=== PATIENT | male | born 1940 | race Caucasian/White ===

== ENCOUNTER 2017-11-07 10:15 | Inpatient (IN) ==
--- NOTE | 2017-11-07 10:42 | Emergency Department Note ---
Disposition Clinical Impression: NSTEMI (non-ST elevated myocardial infarction) Disposition: Admitted As Inpatient [facility] Care Provider[facility] - Forms: ED Satisfaction Letter General Adult HPI - General Chief complaint: ED Chest Pain Stated complaint: elevated troponin Source: patient, family, EMS Limitations: no limitations - History of Present Illness Pain Scale: 1 - Related Data Allergies Allergy/AdvReac Type Severity Reaction Status Date / Time ascorbic acid Allergy Rash Verified 11/07/17 10:26 Past Medical History - Past Medical History Medical history: Reports: CHF, COPD, coronary artery disease, diabetes, GERD, hypertension Psychiatric history: Reports: no psych history - Social History Smoking Status: Current some day smoker Smokeless Tobacco Status: No Alcohol use: Reports: none Drug use: Reports: none Physical Exam - General Limitations: no limitations General appearance: alert, in no apparent distress Course - Reevaluation(s) Reevaluation #1: Attestation note I examined this patient and my medical decision-making was reviewed with the emergency medicine resident. I agree with the documented findings, disposition and treatment plan as described except to the extent set forth below. Patient seen with emergency medicine resident Dr. Amy Toro, Please see a copy of his note for details of the H&P, ED evaluation, management and disposition. I have independently evaluated the patient and confirmed appropriate portions of the history and physical exam. Briefly: 76-year-old male transferred by EMS from the [facility] for elevated troponin and chest pain. Patient had chest pain since last night no history of stents troponin came back 0.09, which is critically elevated. Patient is chest pain-free will be getting anticoagulation cardiology consultation and admission. Providing 30 minutes critical care service for this patient. Patient being admitted with the diagnosis of NSTEMI Time: 10:50 Vital Signs Temperature 97.7 F 11/07/17 10:17 Pulse Rate 80 11/07/17 10:17 Respiratory Rate 18 11/07/17 10:17 Blood Pressure 137/67 11/07/17 10:17 O2 Sat by Pulse Oximetry 99 11/07/17 10:17 Temperature 97.7 F 11/07/17 10:17 Pulse Rate 80 11/07/17 10:17 Respiratory Rate 18 11/07/17 10:17 Blood Pressure 137/67 11/07/17 10:17 O2 Sat by Pulse Oximetry 99 11/07/17 10:17 Oxygen Delivery Oxygen Delivery Nasal Cannula
--- NOTE | 2017-11-07 10:57 | Emergency Department Note ---
Disposition Clinical Impression: NSTEMI (non-ST elevated myocardial infarction) Disposition: Admitted As Inpatient Condition: Good Time of Disposition: 16:43 General Adult HPI - General Chief complaint: ED Chest Pain Stated complaint: elevated troponin Source: patient, family, EMS Limitations: no limitations Nursing Notes Reviewed: Yes Vital Signs Reviewed: Yes - History of Present Illness HPI Narrative: Chest pain that started last night. Pressure in the center of his chest. No radiation does have some mild shortness of breath. He did present to the [place] where he was found to have an elevated troponin of 0.9. No ST elevation noted on his EKG. His chest pain did relieved with aspirin. Pain Scale: 1 - Related Data Home Medications Medication Instructions Recorded Confirmed Ammonium Lactate [Amlactin] 1 appl TP BID 11/07/17 11/07/17 Aspirin Enteric Coated [Aspirin EC] 325 mg PO DAILY 11/07/17 11/07/17 Cetirizine HCl [All Day Allergy] 10 mg PO DAILY 11/07/17 11/07/17 Lanolin Alcohol/Mo/W.pet/[place] 1 appl TP DAILY 11/07/17 11/07/17 [Eucerin Creme] Metformin HCl [Glucophage] 1,000 mg PO BID 11/07/17 11/07/17 Metoprolol [Lopressor] 25 mg PO BID 11/07/17 11/07/17 Omeprazole [PriLOSEC] 20 mg PO DAILY 11/07/17 11/07/17 Pravastatin Sodium [Pravachol] 60 mg PO HS 11/07/17 11/07/17 Terazosin [Hytrin] 3 mg PO HS 11/07/17 11/07/17 Triamcinolone Acet 0.1% CRM 1 appl TP BID PRN 11/07/17 11/07/17 [Kenalog] Allergies Allergy/AdvReac Type Severity Reaction Status Date / Time ascorbic acid Allergy Rash Verified 11/07/17 11:47 All systems ED: reviewed and negative except as stated. Constitutional: Denies: fever, chills ENT ED: Denies: congestion Cardiovascular: Reports: chest pain. Denies: palpitations, syncope Respiratory: Reports: dyspnea (Mild shortness of breath associated with the chest pain not at this time.). Denies: cough Gastrointestinal: Denies: abdominal pain, nausea, vomiting, diarrhea Genitourinary: Denies: urgency, dysuria, frequency Musculoskeletal: Denies: back pain, neck pain Integumentary: Denies: rash Past Medical History - Past Medical History Attestation: Yes The following information was validated with the patient. Source: patient Medical history: Reports: CHF, COPD, coronary artery disease, diabetes, GERD, hypertension Psychiatric history: Reports: no psych history - Social History Smoking Status: Current some day smoker Smokeless Tobacco Status: No Alcohol use: Reports: none Drug use: Reports: none Physical Exam - General Limitations: no limitations General appearance: alert, in no apparent distress - Head Head exam: atraumatic, normocephalic, normal inspection - Eye Eye exam: Present: normal appearance, PERRL, EOMI - ENT ENT exam: normal exam, normal oropharynx, mucous membranes moist - Neck Neck exam: Present: normal inspection, full ROM, trachea midline - Chest Chest inspection: Present: normal inspection, symmetric chest wall rise - Respiratory Respiratory exam: Present: normal lung sounds bilaterally. Absent: respiratory distress, accessory muscle use - Cardiovascular Cardiovascular exam: Present: regular rate, normal rhythm, normal heart sounds - Abdominal Exam Abdominal exam: Present: soft, Non-Tender. Absent: tenderness, distention, guarding, rebound, rigidity - Extremities Exam Extremities exam: Present: normal inspection, full ROM. Absent: tenderness, pedal edema - Back Exam Back exam: Present: normal inspection, full ROM. Absent: tenderness - Neurological Exam Neurological exam: Present: alert, oriented X3 - Psychiatric Psychiatric exam: Present: normal affect, normal mood - Skin Skin exam: Present: warm, dry, intact, normal color Course Course Narrative: Male patient presenting to the emergency department after being transferred from the [place]. Patient started having chest pain around 9:30 last night. Describes it as a pressure in the center of his chest. No radiation. Did have associated shortness of breath. States it has eased at this time after some baby aspirin as well as [id number] pain medication. He states he did take 4 baby aspirin. He was found to have an elevated troponin at 0.9 at the [place]. We will anticoagulate the patient and admit him to the hospital after cardiology consult. I did speak with Dr. Henry about this. He is requesting a CTA of patient's chest due to patient's history of aortic root dilation. We did perform this and showed no signs of dissection. We have anticoagulated him and will admit to the hospital. Vital Signs Temperature 97.7 F 11/07/17 10:17 Pulse Rate 80 11/07/17 10:17 Respiratory Rate 18 11/07/17 10:17 Blood Pressure 137/67 11/07/17 10:17 O2 Sat by Pulse Oximetry 99 11/07/17 10:17 Temperature 98.1 F 11/07/17 13:34 Pulse Rate 71 11/07/17 13:34 Respiratory Rate 17 11/07/17 13:34 Blood Pressure 128/77 11/07/17 13:34 O2 Sat by Pulse Oximetry 99 11/07/17 13:45 Oxygen Delivery Oxygen Delivery Room Air Medical Decision Making - Medical Records Medical records reviewed: Yes I reviewed the patient's medical records. - Lab Data Lab results reviewed: Yes I reviewed the patient's lab results. Result diagrams: 11/07/17 11:18 11/07/17 13:10 Lab Results 11/07/17 11/07/17 11/07/17 Range/Units 11:18 11:18 13:10 WBC 7.3 (4.3-11.1) K/mcL RBC 4.34 (4.19-5.50) M/mcL Hgb 14.7 (12.9-16.9) g/dL Hct 43.2 (37.5-50.1) % MCV 99.5 (83.0-100.0) fL MCH 33.9 H (28.0-33.3) pg MCHC 34.0 (31.6-35.5) g/dL RDW 14.6 H (11.5-14.5) % Plt Count 111 L (140-400) K/mcL MPV 10.9 (9.4-12.4) fL PT 12.8 H (9.4-12.1) Seconds INR 1.2 APTT > 360.0 H* (26.0-36.0) Seconds Heparin Anti-Xa, Unfract 1.13 H* (0.30-0.70) IU/mL Sodium 139 (136-145) mEq/L Potassium 4.5 (3.5-5.1) mEq/L Chloride 107 (98-107) mEq/L Carbon Dioxide 28 (23-29) mEq/L BUN 17 (8-23) mg/dL Creatinine 0.81 (0.70-1.30) mg/dL Est GFR ( Amer) > 60 (> 60) Est GFR (Non-Af Amer) > 60 (> 60) BUN/Creatinine Ratio 21 (6-26) Glucose 149 H (70-105) mg/dL Calculated Osmolality 292 (280-300) Calcium 8.9 (8.6-10.3) mg/dL Total Bilirubin 0.7 (0.3-1.0) mg/dL AST 21 (13-39) Units/L ALT 11 (7-52) Units/L Alkaline Phosphatase 68 (34-104) Units/L Serum Total Protein 6.2 L (6.4-8.9) g/dL Albumin 4.0 (3.5-5.7) g/dL Globulin 2.2 L (2.4-3.5) g/dL Albumin/Globulin Ratio 1.8 (1.1-2.2) - Radiology Data Radiology results reviewed: Yes I reviewed the patient's radiology results. Chest CTA 11/07/17 11:06 IMPRESSION: 1. No evidence of aneurysm or dissection of the thoracic aorta. 2. 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 There is poststenotic dilatation and normal opacification of the peripheral vessel. 3. Peribronchial thickening and mild ground-glass opacities in the lingula and left lower lobe. Pattern may represent a viral infection such as bronchiolitis. No focal consolidation to indicate pneumonia. 4. Indeterminate cystic lesion in the body of the spleen. No prior imaging and no known history of cancer. Recommend a follow-up MRI in 6-12 months. D/ / Mark Davis MD / Mark Davis MD Interpreting Provider: Mark Davis MD - EKG Data EKG #1 EKG attestation: Yes I reviewed and interpreted this EKG. EKG results narrative: Normal sinus rhythm at a rate of 76. [place] interval is 170. QRS duration is 119. QT is 46. QTC is 436. No signs of acute ischemia. Patient does have a right bundle branch block this was on the previous EKG dated 08/25/2011.
[2017-11-07] MEDS ORDERED: *HR* Heparin 5,000 UNIT/ML VIAL IVP PRN ×2 (10:58)
[2017-11-07] MEDS ORDERED: *HR* Heparin 5,000 UNIT/ML VIAL IVP ONE (10:58)
[2017-11-07] MEDS ORDERED: Heparin 25,000 UNIT/500 ML D5W 25,000 UNIT/500 ML BAG IVC SCH (11:00)
[2017-11-07] MEDS ORDERED: Isovue-370 500 ML INFUS..BTL IV ONE (11:06)
[2017-11-07 11:46] LABS: INR 1.2; Prothrombin Time 12.8 Seconds (9.4-12.1)
[2017-11-07 12:27] LABS: Hematocrit 43.2 % (37.5-50.1); Hemoglobin 14.7 g/dL (12.9-16.9); Mean Corpuscular Hemoglobin 33.9 pg (28.0-33.3); Mean Corpuscular Volume 99.5 fL (83.0-100.0); Mean Platelet Volume 10.9 fL (9.4-12.4); Platelet Count 111 K/mcL (140-400); Red Blood Count 4.34 M/mcL (4.19-5.50); Red Cell Distribution Width 14.6 % (11.5-14.5)
[2017-11-07 12:36] LABS: Activated Partial Thrombo Time > 360.0 Seconds (26.0-36.0)
[2017-11-07 12:38] LABS: Heparin anti-factor XA UFH 1.13 IU/mL (0.30-0.70)
[2017-11-07 13:28] LABS: Alanine Aminotransferase 11 Units/L (7-52); Albumin/Globulin Ratio 1.8 (1.1-2.2); Alkaline Phosphatase 68 Units/L (34-104); Aspartate Amino Transferase 21 Units/L (13-39); BUN/Creatinine Ratio 21 (6-26); Bilirubin,Total 0.7 mg/dL (0.3-1.0); Blood Urea Nitrogen 17 mg/dL (8-23); Calcium 8.9 mg/dL (8.6-10.3); Carbon Dioxide 28 mEq/L (23-29); Chloride 107 mEq/L (98-107); Globulin 2.2 g/dL (2.4-3.5); Glucose 149 mg/dL (70-105); Osmolality,Calculated 292 (280-300); Potassium 4.5 mEq/L (3.5-5.1); Sodium 139 mEq/L (136-145); Total Protein 6.2 g/dL (6.4-8.9); eGFR For African Americans > 60 (> 60); eGFR For Non-African Americans > 60 (> 60)
[2017-11-07] MEDS ORDERED: *HR* HYDROcodone/Acet 5/325 mg TABLET PO PRN (14:52)
[2017-11-07] MEDS ORDERED: Acetaminophen 325 MG TABLET PO PRN (14:52)
[2017-11-07] MEDS ORDERED: Naloxone 0.4 MG/ML INJ IVP PRN (14:52)
[2017-11-07] MEDS ORDERED: Nitroglycerin 0.4 MG TAB.SUBL SL PRN (15:05)
[2017-11-07] MEDS ORDERED: Triamcinolone Acet 0.1% CRM 15 GM TUBE TP PRN (15:05)
[2017-11-07] MEDS ORDERED: D5% in Water 1,000 ML IVC PRN (15:06)
[2017-11-07] MEDS ORDERED: Dextrose Gel 15 GM/37.5 ML TUBE PO PRN ×2 (15:06)
[2017-11-07] MEDS ORDERED: *HR* Dextrose 50 % in Water (Syg) 50 ML SYRINGE IVP PRN (15:06)
--- NOTE | 2017-11-07 15:59 | Internal Med History&Physical ---
Date of Encounter: 11/07/17 Time of Encounter: 14:00 Internal Medicine - H&P: HPI Chief complaint: CP Admitted From: Hospital to Hospital Transfer Plans for Post Hospital Care: Home History of present illness: Mr. Mcclain is a 76 year old male w/PMH of CHF (diastolic), COPD, CAD, diabetes controlled with oral antihyperglycemic medications, GERD, HTN, HLD, peripheral neuropathy, aortic root dilation, liver lesion, and degenerative disc disease presents from the [place] with chief complaint of chest pain and shortness of breath that began last night approximately 9 PM after patient finished cutting his grass. Patient describes chest pain as tightness with increasing pressure in center of chest without radiation. Describes similar symptoms previously but felt like acid reflux. Patient reports taking 324 mg of aspirin. Initial troponin at [place] 0.9. No alleviating or aggravating factors. Patient reports some instability w/ambulation but denies recent illness, fever, chills, nausea, vomiting, diaphoresis, headache, changes in vision, palpitations, abdominal pain , diarrhea, constipation, dizziness, lightheadedness, numbness, tingling, pre- syncope, or syncope. Past Med Surg Social Fam HX - Past Medical History Source: patient, old records reviewed, obtained from family Medical history: CHF, COPD, coronary artery disease, diabetes, GERD, hypertension Additional medical history: PERIPHERAL NEUROPATHY. DIASTOLIC DYSFUNCTION. AORTIC ROOT DILATION. LIVER LESION. DEGENERATIVE DISC. INGUINAL HERNIA. ED. BPH Psychiatric history: no psych history - Past Surgical History Additional surgical history: RIGHT KNEE CAP REMOVAL - Social History Smoking Status: Former smoker Packs per day: 1 PPWeek - Reports quitting 16 years ago Smokeless Tobacco Status: No Alcohol use: none Drug use: none Current living situation: Home, With Family Activity Level: Independent ambulation Recent Out of Country Travel Within the Last 8 Weeks: No Exposure or Possible Exposure to Illness During Travel: No - Family History Father Race: Family Member Ethnicity: Non- Living Status: Age at : 93 Cause of : PNA Hx Family Respiratory Disorders: Yes (PNA) Hx Family Neurologic Disorders: Yes (Dementia) Mother Race: Family Member Ethnicity: Non- Living Status: Age at : 70 Cause of : ID Hx Family Cardiac Disorders: Yes (ID x4, CHF) Brother Race: Family Member Ethnicity: Non- Living Status: Still Living Hx Family Medical Disorders: No Sister Race: Family Member Ethnicity: Non- Living Status: Age at : 70 Cause of : Lung cancer Hx Family Cancer: Yes (Lung) Internal Medicine - H&P: Meds Ammonium Lactate [Amlactin] 1 appl TP BID 11/07/17 [History] Aspirin Enteric Coated [Aspirin EC] 325 mg PO DAILY 11/07/17 [History] Cetirizine HCl [All Day Allergy] 10 mg PO DAILY 11/07/17 [History] Lanolin Alcohol/Mo/W.pet/[place] [Eucerin Creme] 1 appl TP DAILY 11/07/17 [History ] Metformin HCl [Glucophage] 1,000 mg PO BID 11/07/17 [History] Metoprolol [Lopressor] 25 mg PO BID 11/07/17 [History] Omeprazole [PriLOSEC] 20 mg PO DAILY 11/07/17 [History] Pravastatin Sodium [Pravachol] 60 mg PO HS 11/07/17 [History] Terazosin [Hytrin] 3 mg PO HS 11/07/17 [History] Triamcinolone Acet 0.1% CRM [Kenalog] 1 appl TP BID PRN 11/07/17 [History] 3 Allergy/AdvReac Type Severity Reaction Status Date / Time ascorbic acid Allergy Rash Verified 11/07/17 11:47 All Systems PM: A 10-system review of systems was performed and is negative for pertinent findings except as documented above in the HPI. - Constitutional Constitutional: no chills, no fever(s), no night sweats - EENT Eyes: no change in vision, no discharge, no pain, no photophobia Ears: no ear discharge, no ear pain, no tinnitus Nose, mouth and throat: no dysphagia, no nasal discharge, no neck pain, no sore throat - Breasts Breasts: as per HPI - Cardiovascular Cardiovascular ROS IM: as per HPI, chest pain, dyspnea, dyspnea on exertion, no diaphoresis, no lightheadedness, no palpitations, no syncope - Respiratory Respiratory: as per HPI, dyspnea, dyspnea on exertion, no cough, no wheezing, no excessive phlegm production - Gastrointestinal Gastrointestinal: no abdominal pain, no diarrhea, no hematemesis, no hematochezia, no melena, no nausea, no vomiting - Genitourinary Genitourinary ROS male: as per HPI - Musculoskeletal Musculoskeletal ROS IM: no numbness, no tingling - Integumentary Integumentary IM: no rash, no unusual bruising - Neurological Neurological ROS: no confusion, no convulsions, no focal weakness, no numbness, no tingling, no tremor(s) - Psychiatric Psychiatric: as per HPI - Endocrine Endocrine IM: as per HPI - Hematologic/Lymphatic Hematologic/Lymphatic: no easy bruising - Allergic/Immunologic Allergic/Immunologic: as per HPI - Constitutional Vitals: Temp Pulse Resp BP Pulse Ox 98.1 F 71 17 128/77 99 11/07/17 13:34 11/07/17 13:34 11/07/17 13:34 11/07/17 13:34 11/07/17 13:45 General appearance: Present: cooperative, A&O X 3, pleasant, no acute distress, answers questions appropriately - Head Head exam: Present: atraumatic, normocephalic - Eye Eye exam: Present: PERRL, conjuntiva pink, sclera anicteric Pupils: Present: PERRL - ENT ENT exam: Present: normal exam - Neck Neck exam general surgery: Present: normal inspection, supple, trachea midline. Absent: lymphadenopathy - Respiratory Respiratory exam: Present: CTAB. Absent: accessory muscle use, rales, rhonchi, wheezes - Cardiovascular Cardiovascular exam: Present: +S1, +S2, tachycardia. Absent: diastolic murmur, gallop, rubs, systolic murmur - GI/Abdominal GI/Abdominal exam: Present: normal bowel sounds, soft, no peritoneal signs. Absent: distended, tenderness - Rectal Rectal exam: Present: deferred - Additional comments: exam deferred. - Extremities Exam Extremities exam: Present: warm, radial pulses palpable and symmetrical. Absent : calf tenderness, cyanotic, pedal edema - Back Exam Back exam: Present: normal inspection - Neurological Exam Neurological exam: Present: alert, CN II-XII intact, oriented X3, no focal deficits. Absent: pronater drift, facial droop, speech deficit - Psychiatric Psychiatric exam: Present: normal affect, normal mood - Skin Skin exam: Present: dry, intact Internal Med - H&P Results - Labs CBC & Chem 7: 11/07/17 11:18 11/07/17 13:10 Labs: BMP 11/07/17 13:10 Sodium 139 Potassium 4.5 Chloride 107 Carbon Dioxide 28 BUN 17 Creatinine 0.81 Glucose 149 H Calcium 8.9 Liver Function 11/07/17 Range/Units 13:10 Total Bilirubin 0.7 (0.3-1.0) mg/dL AST 21 (13-39) Units/L ALT 11 (7-52) Units/L Alkaline Phosphatase 68 (34-104) Units/L Albumin 4.0 (3.5-5.7) g/dL - EKG Data EKG shows normal: sinus rhythm - EKG Data Prior EKG available for review: yes EKG comments: 11/07/17 16:10 EKG dated 08/25/11 shows suspect sinus tachycardia with PACs, left axis deviation, incomplete RBBB. EKG dated 11/07/17 shows sinus rhythm with marked left axis deviation, pattern consistent with pulmonary disease, incomplete RBBB, minimal voltage criteria for LVH. Consider normal variant. - Diagnostic Studies Other Images Additional comments: Impressions Chest CTA 11/07/17 11:06 IMPRESSION: 1. No evidence of aneurysm or dissection of the thoracic aorta. 2. 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 There is poststenotic dilatation and normal opacification of the peripheral vessel. 3. Peribronchial thickening and mild ground-glass opacities in the lingula and left lower lobe. Pattern may represent a viral infection such as bronchiolitis. No focal consolidation to indicate pneumonia. 4. Indeterminate cystic lesion in the body of the spleen. No prior imaging and no known history of cancer. Recommend a follow-up MRI in 6-12 months. D/ / Mark Davis MD / Mark Davis MD Interpreting Provider: Mark Davis MD - Assessment and plan (1) Chest pain Current Visit: Yes Status: Acute Assessment and plan: Acute CP that began last night @ approx 9 p.m. after patient finished cutting his grass. Patient describes chest pain as tightness with increasing pressure in center of chest without radiation. EKG today shows sinus rhythm with marked left axis deviation (pattern consistent with pulmonary disease), incomplete RBBB , and minimal voltage criteria for LVH. Consider normal variant. Initial troponin 0.9 at [place]. Will repeat and trend. Echocardiogram ordered. Pt. reports taking 324 mg aspirin. Nitro SL PRN. Cardiology consult ordered w/ recommendation to start pt. on low-dose heparin drip. Pt. discussed w/Dr. Hidalgo who agrees w/plan of care. Pt. is high risk for further morbidity d/t current sx requiring heparin drip w/titration, familial hx of ID (mother x4), hx; and risk factors of DM, CHF (diastolic), CAD, HTN, and HLD. [facility]t [facility]. Qualifiers: Chest pain type: other chest pain Qualified Code(s): R07.89 - Other chest pain; R07.8 - Other chest pain (2) SOB (shortness of breath) Current Visit: Yes Status: Acute Assessment and plan: Acute SOB accompanying CP sx. Hx of COPD and CHF, both currently stable. Supplemental O2 w/titration and SpO2 monitoring PRN. Falls/safety precautions and up with assist only. (3) Unsteadiness on feet Current Visit: Yes Status: Acute Assessment and plan: Acute on chronic unsteadiness on feet. Pt. reports difficulty w/walking in straight line. PT/OT consults ordered. Falls/safety precautions and up with assist only. (4) CHF (congestive heart failure) Current Visit: Yes Status: Chronic Assessment and plan: Hx of chronic CHF. Stable. Pt. denies current use of diuretic. Will use IV fluids judiciously. Monitor I&O and daily weight. Echocardiogram. Qualifiers: Heart failure type: diastolic Heart failure chronicity: chronic Qualified Code(s): I50.32 - Chronic diastolic (congestive) heart failure (5) COPD (chronic obstructive pulmonary disease) Current Visit: Yes Status: Chronic Assessment and plan: Hx of chronic COPD. Stable . Supplemental O2 w/titration and SpO2 monitoring PRN. Qualifiers: COPD type: unspecified COPD Qualified Code(s): J44.9 - Chronic obstructive pulmonary disease, unspecified (6) CAD (coronary artery disease) Current Visit: Yes Status: Chronic Assessment and plan: Hx of chronic CAD. Continuous cardiac telemetry. Echocardiogram. Continue pts. aspirin, Lopressor, Hytrin, and Pravastatin. Qualifiers: Coronary Disease-Associated Artery/Lesion type: [place] artery [place] vs. transplanted heart: [place] heart Associated angina: angina presence unspecified Qualified Code(s): I25.10 - Atherosclerotic heart disease of [place] coronary artery without angina pectoris (7) Diabetes Current Visit: Yes Status: Chronic Assessment and plan: Hx of chronic diabetes controlled by oral anti-hyperglycemic medications. Will hold oral medications and add low-dose correction insulin sliding scale with hypoglycemic protocol. ACHS checks before meals at bedtime. A1c in a.m. labs. Qualifiers: Diabetes mellitus type: type 2 Diabetes mellitus mcc insulin use: without mcc use Diabetes mellitus complication status: with unspecified complications Qualified Code(s): E11.8 - Type 2 diabetes mellitus with unspecified complications (8) GERD (gastroesophageal reflux disease) Current Visit: Yes Status: Chronic Assessment and plan: Hx of chronic GERD. Continue patient's by mouth Prilosec. IVP Zofran 4 mg every 6 hours when necessary for nausea and vomiting. Qualifiers: Esophagitis presence: esophagitis presence not specified Qualified Code(s) : K21.9 - Gastro-esophageal reflux disease without esophagitis (9) HTN (hypertension) Current Visit: Yes Status: Chronic Assessment and plan: Hx of chronic HTN. Monitor pt. and VS. Continue pts. Lopressor and Hytrin. Qualifiers: Hypertension type: essential hypertension Qualified Code(s): I10 - Essential (primary) hypertension (10) HLD (hyperlipidemia) Current Visit: Yes Status: Chronic Assessment and plan: Hx of chronic HLD. Lipid panel in a.m. labs. Continue pts. Pravastatin. Qualifiers: Hyperlipidemia type: pure hypercholesterolemia Qualified Code(s): E78.00 - Pure hypercholesterolemia, unspecified; E78.0 - Pure hypercholesterolemia (11) DVT prophylaxis Current Visit: Yes Status: Acute Assessment and plan: Patient placed on heparin drip per Cardiology for current CP sx. Monitor pt. for signs of bleeding. - Time Spent With Patient Total time spent is greater than 50% in coordination of care (as documented) at patient's floor/unit and/or counseling patient: Greater than 35 minutes
[2017-11-07] MEDS: Insulin LISPRO 300 UNITS/3 ML VIAL SQ SCH ×2 (16:12→20:43)
[2017-11-07] MEDS ORDERED: Ondansetron 4 MG/2 ML VIAL IVP PRN (16:21)
--- NOTE | 2017-11-07 17:22 | Event Note ---
Date of Encounter: 11/07/17 Time of Encounter: 17:00 - Cardiology Event Note Patient with ACS presentation and elevated troponin. Currently stable on medical therapy. Please start him on NTG drip if he were to develop worsening chest pain; and call IF patient has uncontrollable chest discomfort despite aggressive medical therapy. Likely LH tomorrow, NPO after midnight.
[2017-11-07 19:13] LABS: Activated Partial Thrombo Time 118.4 Seconds (26.0-36.0)
[2017-11-07 19:25] LABS: Heparin anti-factor XA UFH 0.45 IU/mL (0.30-0.70)
[2017-11-07] MEDS: Ammonium Lactate 30 APPL/225 GM BOTTLE TP SCH (20:43)
[2017-11-08 04:06] LABS: Immature Granulocytes % 0.3 % (0-4); Lymphocytes % 31.7 %
[2017-11-08 04:08] LABS: Basophils % 0.3 %; Eosinophils # 0.3 K/mcL (0.0-0.6); Hemoglobin 15.1 g/dL (12.9-16.9); Immature Platelets 5.4 % (1.1-6.1); Lymphocytes # 2.3 K/mcL (0.6-4.6); Mean Corpuscular HGB Conc 34.3 g/dL (31.6-35.5); Mean Corpuscular Hemoglobin 34.3 pg (28.0-33.3); Mean Platelet Volume 10.4 fL (9.4-12.4); Monocytes # 0.6 K/mcL (0.0-1.3); Monocytes % 8.1 %; Neutrophils # 4.1 K/mcL (1.6-8.9); Red Cell Distribution Width 14.8 % (11.5-14.5); Segmented Neutrophils % 55.6 %
[2017-11-08 04:13] LABS: INR 1.1; Prothrombin Time 11.8 Seconds (9.4-12.1)
[2017-11-08 04:21] LABS: Platelet Count 99 K/mcL (140-400)
[2017-11-08 04:28] LABS: Alanine Aminotransferase 11 Units/L (7-52); Albumin/Globulin Ratio 1.9 (1.1-2.2); Alkaline Phosphatase 58 Units/L (34-104); Aspartate Amino Transferase 19 Units/L (13-39); BUN/Creatinine Ratio 17 (6-26); Bilirubin,Total 0.5 mg/dL (0.3-1.0); Blood Urea Nitrogen 12 mg/dL (8-23); Calcium 8.9 mg/dL (8.6-10.3); Carbon Dioxide 29 mEq/L (23-29); Chloride 107 mEq/L (98-107); Chol/HDL Ratio 3.2 (0-4.9); Cholesterol 126 mg/dL (< 200); Globulin 2.1 g/dL (2.4-3.5); Glucose 129 mg/dL (70-105); HDL Cholesterol 39 mg/dL (40-59); LDL Cholesterol,Calculated 62 mg/dL (0-99); Magnesium 2.1 mg/dL (1.6-2.6); Osmolality,Calculated 289 (280-300); Sodium 139 mEq/L (136-145); Total Protein 6.1 g/dL (6.4-8.9); Triglycerides 126 mg/dL (< 150); eGFR For African Americans > 60 (> 60); eGFR For Non-African Americans > 60 (> 60)
[2017-11-08] MEDS: Aspirin Enteric Coated 81 MG Tablet PO SCH (09:02)
[2017-11-08] MEDS: Ammonium Lactate 30 APPL/225 GM BOTTLE TP SCH ×2 (09:02→20:04)
[2017-11-08] MEDS: Loratadine 10 MG TABLET PO SCH (09:02)
[2017-11-08] MEDS: Insulin LISPRO 300 UNITS/3 ML VIAL SQ SCH ×4 (09:02→20:04)
[2017-11-08] MEDS: Eucerin Cream 57 GM TUBE TP SCH (09:03)
--- NOTE | 2017-11-08 09:37 | Internal Med Progress Note ---
<Kendell Heredia - Last Filed: 11/08/17 16:07> Date of Encounter: 11/08/17 - Assessment and plan (1) NSTEMI (non-ST elevated myocardial infarction) Current Visit: Yes Status: Acute (2) CHF (congestive heart failure) Current Visit: No Status: Chronic Qualifiers: Heart failure type: diastolic Heart failure chronicity: chronic Qualified Code(s): I50.32 - Chronic diastolic (congestive) heart failure (3) COPD (chronic obstructive pulmonary disease) Current Visit: Yes Status: Chronic Qualifiers: COPD type: unspecified COPD Qualified Code(s): J44.9 - Chronic obstructive pulmonary disease, unspecified (4) CAD (coronary artery disease) Current Visit: Yes Status: Chronic Qualifiers: Coronary Disease-Associated Artery/Lesion type: [place] artery [place] vs. transplanted heart: [place] heart Associated angina: angina presence unspecified Qualified Code(s): I25.10 - Atherosclerotic heart disease of [place] coronary artery without angina pectoris (5) Diabetes Current Visit: Yes Status: Chronic Qualifiers: Diabetes mellitus type: type 2 Diabetes mellitus jail insulin use: without jail use Diabetes mellitus complication status: with unspecified complications Qualified Code(s): E11.8 - Type 2 diabetes mellitus with unspecified complications (6) HTN (hypertension) Current Visit: Yes Status: Chronic Qualifiers: Hypertension type: essential hypertension Qualified Code(s): I10 - Essential (primary) hypertension (7) HLD (hyperlipidemia) Current Visit: Yes Status: Chronic Qualifiers: Hyperlipidemia type: pure hypercholesterolemia Qualified Code(s): E78.00 - Pure hypercholesterolemia, unspecified; E78.0 - Pure hypercholesterolemia - Time Spent With Patient Total time spent is greater than 50% in coordination of care (as documented) at patient's floor/unit and/or counseling patient: - Constitutional Vitals: Temp Pulse Resp BP Pulse Ox 97.6 F 79 16 136/70 98 11/08/17 07:00 11/08/17 14:55 11/08/17 14:55 11/08/17 14:55 11/08/17 14:55 Internal Medicine: Result - Labs CBC & Chem 7: 11/08/17 03:13 11/08/17 03:13 Labs: Short CBC 11/08/17 Range/Units 03:13 WBC 7.3 (4.3-11.1) K/mcL Hgb 15.1 (12.9-16.9) g/dL Hct 44.0 (37.5-50.1) % Plt Count 99 L (140-400) K/mcL Neutrophils # 4.1 (1.6-8.9) K/mcL BMP 11/08/17 03:13 Sodium 139 Potassium 4.0 Chloride 107 Carbon Dioxide 29 BUN 12 Creatinine 0.72 Glucose 129 H Calcium 8.9 Cardiac Enzymes 11/07/17 11/07/17 11/08/17 Range/Units 15:15 21:21 03:13 Troponin I 1.07 H* 1.11 H* 0.99 H* (< 0.04) ng/mL Liver Function 11/08/17 Range/Units 03:13 Total Bilirubin 0.5 (0.3-1.0) mg/dL AST 19 (13-39) Units/L ALT 11 (7-52) Units/L Alkaline Phosphatase 58 (34-104) Units/L Albumin 4.0 (3.5-5.7) g/dL - ABG Interpretation ABG results: PT/INR, D-dimer PT 11.8 Seconds (9.4-12.1) 11/08/17 03:13 - Impressions Impressions Echocardiogram 11/08/17 15:04 Impressions: LVEF 60%. Indeterminate diastolic function. Normal right ventricular structure and function. Mild mitral regurgitation. Mild-moderate aortic regurgitation. No pulmonary hypertension. Left Ventricular Wall Motion: Rest Echo Findings All wall segments showed normal motion. Findings: Study Quality * Technically adequate exam. ECG Findings * Normal sinus rhythm. Left Ventricle * Indeterminate diastolic function. * Normal LV chamber size, wall thickness and function. * LVEF 60%. Right Ventricle * Normal right ventricular structure and function. Left Atrium * Normal left atrial size. Right Atrium * Normal right atrial size. Mitral Valve * Normal mitral valve structure. * No mitral stenosis. * Mild mitral regurgitation. Aortic Valve * Aortic valve not well visualized. * No aortic stenosis. * Mild-moderate aortic regurgitation. Tricuspid Valve * No tricuspid regurgitation. * Normal tricuspid valve structure. * Estimated RA pressure is 3 mmHg. Pulmonic Valve * Pulmonic valve is not well visualized. * No pulmonic stenosis. * No pulmonic regurgitation. Pulmonary Artery * Pulmonary artery not well visualized. Aorta * Not well visualized. Pericardium * There is no pericardial effusion present. Interatrial Septum * No evidence of PFO by color Doppler. IVC * The IVC is not dilated. Consult Discharge Plan - Plan [facility]errals: [facility] [Primary Care Provider] - - Attending Attestation I examined this patient and my medical decision-making was reviewed with the Resident Physician. I agree with the documented findings, disposition and treatment plan as described except to the extent set forth below. 76 year old male with HFpEF, COPD, CAD, DM presented from [place] for chest pain and dyspnea after cutting grass. At [place] troponin was 09, he was given 324 mg of aspirin. EKG in [facility] showed sinus rhythm and RBBB. Troponin peaked at 1.11 Patient was placed on heparin drip. Today he is in no acute distress. Physical exam shows NAD, RRR, lungs clear to auscultation. 1. NSTEMI - Cardiology consulted, plan is for [facility] today <Kvng Lim - Last Filed: 11/08/17 17:06> Date of Encounter: 11/08/17 Time of Encounter: 09:00 - Assessment and plan (1) NSTEMI (non-ST elevated myocardial infarction) Current Visit: Yes Status: Acute Assessment and plan: - Elevated troponin of 1.07/1.11/0.99 - Atypical chest pain (substernal, non exertional, not relieved by NTG) - Echo on 11/08/17 shows EF 60% with indeterminate diastolic dysfunction - EKG shows NSR with possible RBBB consistent with EKG in 2012, no ST changes. - No reported LHC in past, most recent stress was wnl per family - Currently Chest pain free [facility] findings: The LMCA is angiographically free of disease. There is a 60% stenosis in the Proximal LAD. There is a 60% stenosis in the Mid LAD. There is a 80% stenosis in the Proximal Circumflex. There is a 50% stenosis in the Proximal RCA. There is a 24 mm long, 95% stenosis in the Mid RCA. The lesion has a ANGEL flow of 3. An intervention was performed on the Mid RCA with a final stenosis of 0%. There were no lesion complications. The final ANGEL flow was 3. 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 There is a 50% stenosis in the Distal RCA. Plan - Plan for [facility] today-->There is severe two vessel coronary artery disease. Patient had successful PTCA/Drug-Eluting Stent placement in the mid RCA. - Platelets of 99 this AM, likely chronic (112 on presentation to [place] ED) - Continue heparin gtt, ASA, NTG prn, BB, statin - Will need addition of Brilinta for new SAL to mid-RCA (2) CHF (congestive heart failure) Current Visit: No Status: Chronic Assessment and plan: Hx of chronic CHF. Stable. Pt. denies current use of diuretic. Monitor I&O and daily weight. Qualifiers: Heart failure type: diastolic Heart failure chronicity: chronic Qualified Code(s): I50.32 - Chronic diastolic (congestive) heart failure (3) COPD (chronic obstructive pulmonary disease) Current Visit: Yes Status: Chronic Assessment and plan: Hx of chronic COPD. Stable . Qualifiers: COPD type: unspecified COPD Qualified Code(s): J44.9 - Chronic obstructive pulmonary disease, unspecified (4) CAD (coronary artery disease) Current Visit: Yes Status: Chronic Assessment and plan: Hx of chronic CAD. Continuous cardiac telemetry. See plan for acute ME. Qualifiers: Coronary Disease-Associated Artery/Lesion type: [place] artery [place] vs. transplanted heart: [place] heart Associated angina: angina presence unspecified Qualified Code(s): I25.10 - Atherosclerotic heart disease of [place] coronary artery without angina pectoris (5) Diabetes Current Visit: Yes Status: Chronic Assessment and plan: Hx of chronic diabetes controlled by oral anti-hyperglycemic medications. Will hold oral medications and add low-dose correction insulin sliding scale with hypoglycemic protocol. ACHS checks before meals at bedtime. A1c in a.m. labs. Qualifiers: Diabetes mellitus type: type 2 Diabetes mellitus jail insulin use: without jail use Diabetes mellitus complication status: with unspecified complications Qualified Code(s): E11.8 - Type 2 diabetes mellitus with unspecified complications (6) GERD (gastroesophageal reflux disease) Current Visit: Yes Status: Chronic Assessment and plan: Hx of chronic GERD. Continue patient's by mouth Prilosec. IVP Zofran 4 mg every 6 hours when necessary for nausea and vomiting. Qualifiers: Esophagitis presence: esophagitis presence not specified Qualified Code(s) : K21.9 - Gastro-esophageal reflux disease without esophagitis (7) HTN (hypertension) Current Visit: Yes Status: Chronic Assessment and plan: Hx of chronic HTN. Monitor pt. and VS. Continue pts. Lopressor and Hytrin. Qualifiers: Hypertension type: essential hypertension Qualified Code(s): I10 - Essential (primary) hypertension (8) HLD (hyperlipidemia) Current Visit: Yes Status: Chronic Assessment and plan: Hx of chronic HLD. Continue pts. Pravastatin. Qualifiers: Hyperlipidemia type: pure hypercholesterolemia Qualified Code(s): E78.00 - Pure hypercholesterolemia, unspecified; E78.0 - Pure hypercholesterolemia (9) DVT prophylaxis Current Visit: Yes Status: Acute Assessment and plan: Patient placed on heparin drip this AM, started on Brilinta post LHC. Consider starting SQ heparin. - Time Spent With Patient Total time spent is greater than 50% in coordination of care (as documented) at patient's floor/unit and/or counseling patient: - Subjective Interval history: Patient seen and evaluated sitting up on bedside. No acute distress. Patient's and stock blender present in the room. asking questions on diagnosis and plan ; these were answered to the best of my knowledge pending cardiology's evaluation. Patient denies chest pain currently; he notes pain that began yesterday evening and that he continued to have chest pain until he was admitted here and started on Heparin. Per cardiology's note, patient will like have LHC today. Patient denies any chest pain, shortness of breath, dizziness, edema. He asks about eating/getting coffee; explained he is NPO any possible cardiac procedures he may need today. Patient and stated understanding. - Constitutional Vitals: Temp Pulse Resp BP Pulse Ox 97.6 F 101 18 108/68 96 11/08/17 07:00 11/08/17 07:00 11/08/17 07:00 11/08/17 07:00 11/08/17 07:22 General appearance: Present: cooperative, A&O X 3, pleasant, no acute distress, answers questions appropriately - Head Head exam: Present: atraumatic, normal inspection, normocephalic - Eye Eye exam: Present: EOMI, normal appearance, conjuntiva pink, sclera anicteric - ENT ENT exam: Present: mucous membranes moist - Neck Neck exam general surgery: Present: full ROM, normal inspection, supple - Respiratory Respiratory exam: Present: CTAB. Absent: accessory muscle use, respiratory distress, rhonchi, stridor, wheezes - Cardiovascular Cardiovascular exam: Present: +S1, +S2, tachycardia. Absent: diastolic murmur, systolic murmur - GI/Abdominal GI/Abdominal exam: Present: normal bowel sounds, soft. Absent: distended, firm , guarding, tenderness - Extremities Exam Extremities exam: Present: normal inspection, warm. Absent: cyanotic, pedal edema, tenderness - Neurological Exam Neurological exam: Present: alert, oriented X3, no focal deficits. Absent: speech deficit - Psychiatric Psychiatric exam: Present: normal affect, normal mood - Skin Skin exam: Present: dry, intact, normal color, warm. Absent: cyanosis, erythema , rash Internal Medicine: Result - Labs CBC & Chem 7: 11/08/17 03:13 11/08/17 03:13 Labs: Short CBC 11/08/17 Range/Units 03:13 WBC 7.3 (4.3-11.1) K/mcL Hgb 15.1 (12.9-16.9) g/dL Hct 44.0 (37.5-50.1) % Plt Count 99 L (140-400) K/mcL Neutrophils # 4.1 (1.6-8.9) K/mcL BMP 11/07/17 11/08/17 13:10 03:13 Sodium 139 139 Potassium 4.5 4.0 Chloride 107 107 Carbon Dioxide 28 29 BUN 17 12 Creatinine 0.81 0.72 Glucose 149 H 129 H Calcium 8.9 8.9 Cardiac Enzymes 11/07/17 11/07/17 11/08/17 Range/Units 15:15 21:21 03:13 Troponin I 1.07 H* 1.11 H* 0.99 H* (< 0.04) ng/mL Liver Function 11/07/17 11/08/17 Range/Units 13:10 03:13 Total Bilirubin 0.7 0.5 (0.3-1.0) mg/dL AST 21 19 (13-39) Units/L ALT 11 11 (7-52) Units/L Alkaline Phosphatase 68 58 (34-104) Units/L Albumin 4.0 4.0 (3.5-5.7) g/dL - ABG Interpretation ABG results: PT/INR, D-dimer PT 11.8 Seconds (9.4-12.1) 11/08/17 03:13 - Impressions Impressions Echocardiogram 11/08/17 15:04 Impressions: LVEF 60%. Indeterminate diastolic function. Normal right ventricular structure and function. Mild mitral regurgitation. Mild-moderate aortic regurgitation. No pulmonary hypertension. Left Ventricular Wall Motion: Rest Echo Findings All wall segments showed normal motion. Findings: Study Quality * Technically adequate exam. ECG Findings * Normal sinus rhythm. Left Ventricle * Indeterminate diastolic function. * Normal LV chamber size, wall thickness and function. * LVEF 60%. Right Ventricle * Normal right ventricular structure and function. Left Atrium * Normal left atrial size. Right Atrium * Normal right atrial size. Mitral Valve * Normal mitral valve structure. * No mitral stenosis. * Mild mitral regurgitation. Aortic Valve * Aortic valve not well visualized. * No aortic stenosis. * Mild-moderate aortic regurgitation. Tricuspid Valve * No tricuspid regurgitation. * Normal tricuspid valve structure. * Estimated RA pressure is 3 mmHg. Pulmonic Valve * Pulmonic valve is not well visualized. * No pulmonic stenosis. * No pulmonic regurgitation. Pulmonary Artery * Pulmonary artery not well visualized. Aorta * Not well visualized. Pericardium * There is no pericardial effusion present. Interatrial Septum * No evidence of PFO by color Doppler. IVC * The IVC is not dilated.
--- NOTE | 2017-11-08 09:43 | Cardiology Consult Note ---
Date of Encounter: 11/08/17 Time of Encounter: 09:35 Assessment and Plan (1) NSTEMI (non-ST elevated myocardial infarction) Current Visit: Yes Status: Acute - Elevated troponin of 1.07/1.11/0.99 - Atypical chest pain on HPI (substernal, non exertional, not relieved by NTG) - Echo on 11/08/17 shows EF 60% with indeterminate diastolic dysfunction - EKG shows NSR with possible RBBB consistent with EKG in 2012, no ST changes to suggest acute infarct - No reported LHC in past, most recent stress was wnl per family - Symptoms have currently resolved. Plan - Plan for LHC today, NPO - Records requested. - Platelets of 99 this AM, likely chronic (112 on presentation to [place] ED) - Continue heparin gtt, ASA, NTG prn, BB, statin (2) CHF (congestive heart failure) Current Visit: No Status: Chronic - Appears euvolemic on exam, not in acute exacerbation - SOB resolved. - Continue current medications Qualifiers: Heart failure type: diastolic Heart failure chronicity: chronic Qualified Code(s): I50.32 - Chronic diastolic (congestive) heart failure (3) COPD (chronic obstructive pulmonary disease) Current Visit: Yes Status: Chronic Not in acute exacerbation Further management per primary team Qualifiers: COPD type: unspecified COPD Qualified Code(s): J44.9 - Chronic obstructive pulmonary disease, unspecified (4) CAD (coronary artery disease) Current Visit: Yes Status: Chronic As above for NSTEMI Qualifiers: Coronary Disease-Associated Artery/Lesion type: [place] artery [place] vs. 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 BP 108/68 Continue current meds Qualifiers: Hypertension type: essential hypertension Qualified Code(s): I10 - Essential (primary) hypertension (7) HLD (hyperlipidemia) Current Visit: Yes Status: Chronic Continue statin Qualifiers: Hyperlipidemia type: pure hypercholesterolemia Qualified Code(s): E78.00 - Pure hypercholesterolemia, unspecified; E78.0 - Pure hypercholesterolemia Discussion w patient/family: The assessment and plan as outlined above was discussed with the patient and/or family members who expressed understanding and agreement. All questions were answered. Thank you for involving us in the care of your patient. Please call with any questions. History of Present Illness Consult date: 11/08/17 Requesting physician: Christian Luo Consult reason: NSTEMI Chief complaint: chest pain History of present illness: Mr. Mcclain is a 76 year old male with a PMhx of HFpEF, COPD, CAD, DM2, GERD, HTN , Aortic root dilation presents to [place] from [place] with a complaint of chest pain. He states that he was sitting and resting wednesday evening when he began to experience sudden onset chest tightness substernally as well as SOB at rest. He denies radiation or exacerbating symptoms. He states that the pain resolved after the ED started a heparin gtt. He has never experienced this in the past. Denies any symptoms of fevers, chills, nausea, vomiting, diaphoresis. He states that he had a cardiac workup in 2011 at the [place] when he was diagnosed with CHF. They report that echocardiogram and stress test were normal at that time. Denies any history of LHC. Echo per chart review on 08/24/11 shows EF 50-55 % with mild AR. Risk factors of HTN, HLD, former smoker (16 years quit) Today he states he is pain free and feels back to baseline. No new complaints. Past Med Surg Social Fam HX - Past Medical History Medical history: CHF, COPD, coronary artery disease, diabetes, GERD, hypertension Additional medical history: PERIPHERAL NEUROPATHY. DIASTOLIC DYSFUNCTION. AORTIC ROOT DILATION. LIVER LESION. DEGENERATIVE DISC. INGUINAL HERNIA. ED. BPH Psychiatric history: no psych history - Past Surgical History Additional surgical history: RIGHT KNEE CAP REMOVAL - Social History Smoking Status: Current some day smoker Packs per day: 1 PPWeek - Reports quitting 16 years ago Smokeless Tobacco Status: No Alcohol use: none Drug use: none - Family History Father Race: Family Member Ethnicity: Non- Living Status: Age at : 93 Cause of : PNA Hx Family Respiratory Disorders: Yes (PNA) Hx Family Neurologic Disorders: Yes (Dementia) Mother Race: Family Member Ethnicity: Non- Living Status: Age at : 70 Cause of : [place] Hx Family Cardiac Disorders: Yes ([place] x4, CHF) Brother Race: Family Member Ethnicity: Non- Living Status: Still Living Hx Family Medical Disorders: No Sister Race: Family Member Ethnicity: Non- Living Status: Age at : 70 Cause of : Lung cancer Hx Family Cancer: Yes (Lung) Medications and Allergies Ammonium Lactate [Amlactin] 1 appl TP BID 11/07/17 [History] Aspirin Enteric Coated [Aspirin EC] 325 mg PO DAILY 11/07/17 [History] Cetirizine HCl [All Day Allergy] 10 mg PO DAILY 11/07/17 [History] Lanolin Alcohol/Mo/W.pet/[place] [Eucerin Creme] 1 appl TP DAILY 11/07/17 [History ] Metformin HCl [Glucophage] 1,000 mg PO BID 11/07/17 [History] Metoprolol [Lopressor] 25 mg PO BID 11/07/17 [History] Omeprazole [PriLOSEC] 20 mg PO DAILY 11/07/17 [History] Pravastatin Sodium [Pravachol] 60 mg PO HS 11/07/17 [History] Terazosin [Hytrin] 3 mg PO HS 11/07/17 [History] Triamcinolone Acet 0.1% CRM [Kenalog] 1 appl TP BID PRN 11/07/17 [History] 3 Allergy/AdvReac Type Severity Reaction Status Date / Time ascorbic acid Allergy Rash Verified 11/07/17 11:47 All Systems Review: The remainder of the systems were reviewed and are negative - Constitutional Constitutional: no chills, no fever(s), no weakness - Cardiovascular Cardiovascular: chest pain at rest, dyspnea at rest, no diaphoresis, no dyspnea on exertion, no leg edema, no lightheadedness, no orthopnea, no syncope - Respiratory Respiratory: dyspnea, no cough - Gastrointestinal Gastrointestinal: no nausea - Neurological Neurological: no syncope Physical Examination Vital Signs, Last 4 Hours Temp Pulse Resp BP Pulse Ox 11/08/17 07:22 96 11/08/17 07:00 97.6 F 101 18 108/68 96 General: Conversant, No Apparent Distress HEENT: Atraumatic, Normocephaly, Mucus Membranes Moist Neck: No JVD, Other (bruit on left) Cardiac: Reg Rate and Rhythm, Normal S1 and S2, No Murmur Lungs: Normal Breath Sounds, No Wheeze, Rales, Rhonchi Neuro: Alert and responsive, No focal deficits noted Abdomen: Soft, Non-Tender Skin: No rashes noted on visualized skin Musculoskeletal: No Chest Wall Tenderness Extremities: No Clubbing, No Cyanosis, No Edema, Normal Pulses Results 11/08/17 03:13 11/08/17 03:13 Lab Results 11/07/17 11/07/17 11/07/17 13:10 15:15 18:07 WBC Hgb Hct Plt Count INR APTT 118.4 H* D Sodium 139 Potassium 4.5 Chloride 107 Carbon Dioxide 28 BUN 17 Creatinine 0.81 Glucose 149 H Calcium 8.9 Magnesium Total Bilirubin 0.7 AST 21 ALT 11 Alkaline Phosphatase 68 Troponin I 1.07 H* 11/07/17 11/08/17 11/08/17 21:21 03:13 03:13 WBC Hgb Hct Plt Count INR APTT 61.6 H Sodium Potassium Chloride Carbon Dioxide BUN Creatinine Glucose Calcium Magnesium Total Bilirubin AST ALT Alkaline Phosphatase Troponin I 1.11 H* 0.99 H* 11/08/17 11/08/17 11/08/17 03:13 03:13 03:13 WBC 7.3 Hgb 15.1 Hct 44.0 Plt Count 99 L INR 1.1 APTT Sodium 139 Potassium 4.0 Chloride 107 Carbon Dioxide 29 BUN 12 Creatinine 0.72 Glucose 129 H Calcium 8.9 Magnesium 2.1 Total Bilirubin 0.5 AST 19 ALT 11 Alkaline Phosphatase 58 Troponin I Consult Discharge Plan - Plan [facility]errals: [facility] [Primary Care Provider] -
--- NOTE | 2017-11-08 10:58 | Pre-Sedation Evaluation ---
Pre-sedation evaluation - Pre-sedation checklist Date of procedure: 11/08/17 Procedure: LHC Recent Vitals: Last Vital Signs Temp 97.6 F 11/08/17 07:00 Pulse 101 11/08/17 07:00 Resp 18 11/08/17 07:00 BP 108/68 11/08/17 07:00 Pulse Ox 96 11/08/17 07:22 ASA Classification *see protocol: CLASS II-Mild systemic disease
[2017-11-08] MEDS ORDERED: Heparin 1,000 UNITS/500 mL 500 ML ONE (12:46)
[2017-11-08] MEDS ORDERED: 0.9 % Sodium Chloride 1,000 ML ONE ×2 (12:46→13:10)
[2017-11-08] MEDS ORDERED: Nitroglycerin 1,000 MCG/10 ML VIAL IV ONE (12:47)
[2017-11-08] MEDS ORDERED: ISOVUE-370 200 ML INFUS..BTL IV ONE ×2 (12:47→13:53)
[2017-11-08] MEDS ORDERED: *HR* Heparin 10,000 UNIT/10 ML VIAL ONE (12:47)
[2017-11-08] MEDS ORDERED: *HR* Midazolam HCl 2 MG/2 ML VIAL ONE (13:20)
[2017-11-08] MEDS ORDERED: *HR* FentaNYL (PF) 100 MCG/2 ML VIAL ONE (13:21)
[2017-11-08] MEDS ORDERED: Tirofiban 12.5 MG/250ML 12.5 MG/250 ML BAG ONE (13:49)
[2017-11-08] MEDS ORDERED: *HR* Ticagrelor 90 MG TABLET ONE (14:25)
--- NOTE | 2017-11-08 14:38 | Invasive Diagnostic Lab Proc ---
Name: Bear Mcclain Date of Study: 11/08/2017 Date: 1940 Ht: 70.9in Medical Record#: [id number] Age: 76 Wt: 167.55lb Gender: Male BSA: 1.95 Order #: [id number] BMI: 23.46 Physicians Procedure Physician: Rajan Jennings MD Referring MD: Referring MD: Staff Name Position Time In Gisel Humphries RN Monitor 01:16 PM Gianfranco Magana RN Food Manager 01:16 PM Stephen Zamora RT (R) Scrub 01:16 PM Indications Indication Non-Stemi Procedures Performed Procedure L HRT ARTERY/VENTRICLE ANGIO PRQ CARD SAL STENT W/ANGIO 1 VSL Pre-Procedure Checklist Informed consent is complete signed and on chart. H&P is on chart. ID band is on and ID verified with patient. Patient NPO for procedure The procedure was described for the patient and questions were answered. Blood Pressure: 108/68 ECG is on chart. Rhythm: Sinus Tachycardia Plan of Care Patient will tolerate the procedure without complications. Adequate level of comfort will be maintained. Hemodynamics will remain stable Patient will recover from procedure without complications. Respiratory function will be maintained. Cardiac rhythm will remain stable. Patient temperature will be maintained. Patient and/or family have verbalized understanding of the procedure. Patient Education Chief Complaint/Reason for Test: Cardiac Cath Developmental Category: Geriatric (65+ years) Developmentally Appropriate for Age: Yes Learning Barriers: None Education Needs: Procedure Education Method: Verbal Information Taught: Cardiac Cath Educational Evaluation: Able to repeat information Intravenous Access Time IV Size Location DC'd Fluid/Drip Rate Units RN 20g 1 /" Patent On Arrival Allergies NKA ascorbic acid Vital Signs Time BP (mmHg) HR (bpm) O2 Sat. RR (bpm) LOC 12:51 PM 108 / 68 101 96 % 18 5 = Fully awake and oriented or at pre-proc level 01:17 PM / % 5 = Fully awake and oriented or at pre-proc level 01:17 PM / % 4 = Oriented but drowsy 01:32 PM / % 4 = Oriented but drowsy 01:47 PM / % 4 = Oriented but drowsy 02:02 PM / % 4 = Oriented but drowsy 01:22 PM 140 / 78 77 99 % 01:27 PM 117 / 71 88 97 % 01:32 PM 121 / 68 90 96 % 01:37 PM 61 / 31 87 97 % 01:38 PM 110 / 66 84 95 % 01:42 PM 111 / 72 89 94 % 01:47 PM 122 / 70 86 95 % 01:52 PM 120 / 67 84 97 % 01:57 PM 119 / 70 82 96 % 02:02 PM 120 / 66 83 97 % 02:07 PM 119 / 69 81 97 % 02:12 PM 127 / 70 81 97 % 02:17 PM 129 / 68 80 98 % 02:22 PM 136 / 80 80 98 % 02:17 PM / % 4 = Oriented but drowsy Procedural Medications Time Medication Dose Units Method Given By 01:17 PM Oxygen 2 L/min nasal cannula Gianfranco Magana RN 01:23 PM Versed 1 mg Intravenous Gianfranco Magaan RN 01:23 PM Fentanyl 50 mcg Intravenous Gianfranco Magana RN 01:29 PM Lidocaine 2% 10 ml Subcutaneous Rajan Jennings MD 01:49 PM Heparin 3000 units Intravenous Gianfranco Magana RN 01:50 PM Aggrastat Bolus: 37.5 ml Intravenous Gianfranco Magana RN 01:51 PM Aggrastat 12.5mg/250ml 13.5 ml/hr Intravenous Gianfranco Magana RN 02:24 PM Brilinta 180 mg Orally Gianfranco Magana RN ASA Classification: CLASS II- Mild systemic disease (i.e. well-controlled diabetes, hypertension, asthma, cigarette smoking) Coy Score Preprocedure Postprocedure Activity 2- Moves 4 extremities sustained head lift Activity 2- Moves 4 extremities sustained head lift Circulation 2- SBP +/= 20 points of pre-anesthetic level Circulation 2- SBP +/= 20 points of pre-anesthetic level Consciousness 2- Awake and alert oriented x 3 Consciousness 2- Awake and alert oriented x 3 O2 Saturation 2- Able to maintain O2 satruation of 92% on room air O2 Saturation 2- Able to maintain O2 satruation of 92% on room air Respiratory 2- Able to deep breathe and cough well Respiratory 2- Able to deep breathe and cough well Total Score 10 Total Score 10 Contrast Agent: Isovue Diagnostic Contrast: 143 ml Total Contrast: 143 ml Fluoro Dose: 64344 mGy Activated Clotting Time Time Seconds to Clot 01:47 PM 166 Procedure Log Time Note Enter By 01:16 PM Pt arrived to syrup machine laborer 2 at 13:16 magali 01:16 PM Soummers, Gisel RN Position: Monitor Time in: 13:16 [email or web address] 01:16 PM Gianfranco Magana RN Position: Food Manager Time in: 13:16 mm 01:16 PM Stephen Zamora RT (R) Position: Scrub Time in: 13:16 oummfili 01:16 PM Patient charges- Angio tray pack, Navilyst 3mm J, Pulse Oximetry and ACIST tubing and transducer oumm:16 PM Case Delayed No oumm:17 PM Hair removed from procedure site in procedure lab using clippers. Bilateral groin prepped with Chloraprep by Gianfranco Magana RN, then patient was draped. [facility] Meet and greet completed [facility] : PM Sign in performed according to hospital policy. mm: PM Procedure start 13:17 oummfili : PM Time: 13:17 Oxygen on at 2 L/min per nasal cannula by Gianfranco Magana RN [facility] : PM Time: 13:17 Patient comfortable and pain free: Yes mm: PM Time: 13:17LOC: 5 = Fully awake and oriented or at pre-proc level oumm: PM Clinical Presentation: Non-STEMI mm: PM CathStat : PM Vitals capture started with the following parameters, Patient=Adult, Interval=5 min, Initial Dicitxmo=407 mmHg, Deflation Rate=5 mmHg, Cuff placed on Right Arm : PM Recorded ECG: HR=83 Condition=Condition 1 : PM HR=77 bpm, GKJI=963/78 mmhg, SpO2=99.0 %, Comment=nsr : PM Time: : Versed 1 mg Intravenous Given by Gianfranco Magana RN torimmfili : PM Time: : Fentanyl 50 mcg Intravenous Given by Gianfranco Magana RN torimmfili : PM ASA Class CLASS II- Mild systemic disease (i.e. well-controlled diabetes, hypertension, asthma, cigarette smoking) [facility] PM HR=88 bpm, VLNU=554/71 mmhg, SpO2=97.0 %, Comment=nsr : PM Pressure channel 1 zeroed. : PM Time out performed according to hospital policy 01:29 PM Time: 13:29 10 ml Lidocaine 2% to left groin Subcutaneous Given by Rajan Jennings MD 01:30 PM Micro-Introducer Kit utilized for sheath placement 01:31 PM Unsuccessful access attempt # 1 into the left Femoral artery. Manual pressure applied to achieve hemostasis.. 01:32 PM HR=90 bpm, WCPZ=294/68 mmhg, SpO2=96.0 %, Comment=nsr 01:32 PM Time: 13:17LOC: 4 = Oriented but drowsy 01:32 PM Time: 13:17 Patient comfortable and pain free: Yes 01:33 PM Access obtained by percutaneous puncture. 6Fr 10cm Terumo [place] sheath placed in left Femoral artery. [id number] mm 01:34 PM 0.035 145cm Navilyst 3mmJ wire [id number] 01:34 PM 5Fr FR 4 catheter inserted over the wire [facility] 01:35 PM wire removed 01:35 PM Recorded Pressure: Ao, HR=84, Condition=Condition 1 (Aorta) Ao 95/64/79 01:35 PM RCA angiography performed in multiple views. 01:36 PM Coronary Dominance: right tsmm 01:36 PM Catheter removed 01:36 PM 5Fr FL 4 catheter inserted over the wire DN 01:37 PM HR=87 bpm, NIBP=61/31 mmhg, SpO2=97.0 %, Comment=nsr 01:37 PM NIBP STAT measurement started. 01:38 PM LCA angiography performed in multiple views. mm 01:38 PM Recorded Pressure: Ao, HR=85, Condition=Condition 1 (Aorta) Ao 98/63/80 01:38 PM HR=84 bpm, AEMI=906/66 mmhg, SpO2=95.0 %, Comment=nsr 01:39 PM Recorded Pressure: Ao, HR=82, Condition=Condition 1 (Aorta) Ao 99/63/80 01:41 PM Catheter removed per 01:41 PM 5Fr Pigtail catheter inserted over the wire [facility] fili 01:42 PM HR=89 bpm, FHET=065/72 mmhg, SpO2=94.0 %, Comment=nsr 01:43 PM Catheter selectively placed in left ventricle tsoumm 01:44 PM Recorded Pressure: LV, HR=86, Condition=Condition 1 (Left Ventricle) LV 108/14/15 01:44 PM no injection, pressures obtained tsoumm 01:45 PM Recorded Pressure: LV, Ao, HR=84, Condition=Condition 1 (Left Ventricle) LV 110/15/14, (Aorta) Ao 104/62/81 01:45 PM Catheter repositioned to the aorta tsoumm 01:46 PM Bolus angiogram of Abdominal aorta complete: 10 ml/sec for a total of 15 mls tsoummers 01:47 PM Bolus angiogram of Abdominal aorta complete: 10 ml/sec for a total of 15 mls tsoummers 01:47 PM HR=86 bpm, GHRN=234/70 mmhg, SpO2=95.0 %, Comment=nsr 01:47 PM Time: 13:32 Patient comfortable and pain free: Yes mm:47 PM Time: 13:32LOC: 4 = Oriented but drowsy tsoummers :47 PM At 13:47 the ACT was 166 seconds. tsmm 01:48 PM Lesion found in Mid RCA. Pre Stenosis: 95 Pre ANGEL Flow: 3: Complete and Brisk Flow/Perfusion tsoumm 01:48 PM Right Coronary, Right Posterior Descending Arteries with Right Posterolateral and Acute Marginal branches with 95 % stenosis. If graft is supplying this area, 0 % stenosis tsoumm:48 PM Catheter removed ts:48 PM Inflation device was opened. tsmm 01:49 PM 6Fr JR 4 [place] Bright-Tip guide catheter was used to cannulate the PCI vessel successfully. reused? No oumm 01:49 PM Time: 13:49 Heparin 3000 units Intravenous Given by Gianfranco Magana RN brina 01:51 PM Time: 13:50 Aggrastat Bolus: 37.5 ml Intravenous Given by Gianfranco Magana RN Davison pump brina :51 PM Time: 13:51 Aggrastat 12.5mg/250ml 13.5 ml/hr Intravenous Given by Gianfranco Magana RN Davison pump brina 01:52 PM Recorded Pressure: Ao, HR=84, Condition=Condition 1 (Aorta) Ao 114/58/81 01:52 PM HR=84 bpm, BBFN=423/67 mmhg, SpO2=97.0 %, Comment=nsr 01:53 PM .014 BMW [place] 190cm guide wire across target lesion- unsuccessful. reused? No tsoummers 01:57 PM Guide wire removed intact. tsoummers 01:57 PM HR=82 bpm, MNAI=448/70 mmhg, SpO2=96.0 %, Comment=nsr 01:58 PM 0.035 260cm Navilyst 3mmJ wire [id number] tsoummers 01:58 PM Guide catheter removed intact. tsoummers 01:59 PM 6Fr 3DRC [place] Bright-Tip guide catheter was used to cannulate the PCI vessel successfully. reused? No tsoummers 01:59 PM Wire removed tsoummers 02:00 PM BMW wire reinserted tsoummers 02:02 PM HR=83 bpm, OWBL=446/66 mmhg, SpO2=97.0 %, Comment=nsr 02:02 PM Time: 13:47LOC: 4 = Oriented but drowsy tsoummers 02:02 PM Time: 13:47 Patient comfortable and pain free: Yes tsoummers 02:03 PM guide wire removed intact tsoummers 02:04 PM Guide catheter removed intact. tsoummers 02:04 PM 6Fr IM [place] Runway guide catheter was used to cannulate the PCI vessel successfully. reused? No tsoummers 02:07 PM HR=81 bpm, VNOX=905/69 mmhg, SpO2=97.0 %, Comment=nsr 02:09 PM BMW reinserted tsoummers 02:09 PM 2.0 mm x 12 mm Emerge Monorail balloon across target lesion- successful. reused? No tsoummers 02:10 PM Balloon inflated @ 6 tamir for 6 seconds tsoummers 02:10 PM Balloon catheter removed intact. tsoummers 02:11 PM 3.5mm x 24mm Synergy drug-eluting stent across target lesion- successful Lot #[id number] tsoummers 02:12 PM HR=81 bpm, ITRU=477/70 mmhg, SpO2=97.0 %, Comment=nsr 02:13 PM Stent deployed @ 9 tamir for 10 seconds tsoummers 02:13 PM Stent balloon reinflated @ 14 tamir for 9 seconds tsoumm 02:14 PM Stent balloon reinflated @ 18 tamir for 11 seconds tsoumm 02:14 PM Stent delivery system removed intact. oumm 02:14 PM Recorded Pressure: Ao, HR=78, Condition=Condition 1 (Aorta) Ao 120/61/86 02:16 PM 4.0 mm x 12mm NC Emerge balloon across target lesion- unsuccessful. reused? No. Balloon not inflated mm 02:17 PM HR=80 bpm, KAEP=254/68 mmhg, SpO2=98.0 %, Comment=nsr 02:17 PM Time: 14:02 Patient comfortable and pain free: Yes mm 02:17 PM Time: 14:02LOC: 4 = Oriented but drowsy tsoumm 02:18 PM Balloon catheter removed intact. tsoumm 02:18 PM Guide wire removed intact. tsoumm 02:19 PM Guide catheter removed intact. [facility] 02:20 PM Procedure completed at 14:20 [facility] 02:20 PM Did you address ANGEL flow and Dominance? Yes mmers 02:21 PM Isovue 370 - 200ml,1 Bottle(s) used. tsoummers 02:21 PM Sign out completed: Radiation Dose 1780.28 mGy, 16287 cGy/cm2 Fluoro Time: 20.3 Isovue 370 - 200ml contrast 143 ml given by Rajan Jennings MD. Complications: NoneCardiac Rehab Consult needed: YesConfirmed administered medications: Yes mm 02:21 PM Arterial sheath pulled, Angio-seal closure device used and was Successful [id number] S/N. tsoummers 02:21 PM Estimated Blood Loss: less than 20cc tsoummers 02:21 PM Post ECG NSR tsoummers 02:22 PM Post Blood Pressure 129/68 tsoummers 02:22 PM Information taught Cardiac Cath, PCI, and [facility] PM Education needs Procedure, Plan of Care, and Responsibilities of Patient in Care tsmm 02:22 PM Learning barriers :[facility] 02:22 PM Education Methods Verbal tsmm 02:22 PM HR=80 bpm, EJBZ=239/80 mmhg, SpO2=98.0 %, Comment=nsr 02:22 PM Education evaluation Able to repeat information 02:22 PM Site status No bleeding/hematoma - Rt Groin as reported by Stephen Zamora RT (R) at 14:22 mm 02:22 PM Opsite applied mm 02:22 PM Delay to floor No oumm 02:22 PM Family placed in consult room. 02:22 PM Complications: None 02:22 PM Fluoro Time: 20.3 mm 02:22 PM Isovue 370 - 200ml contrast [address] Jennings. 02:23 PM Radiation Dose 1780.28 mGy 02:24 PM Time: 14:24 Brilinta 180 mg Orally Given by Gianfranco Magana RN tori 02:24 PM Plavix, Effient or Brilinta given Yes mm 02:26 PM Lesion found in Proximal RCA. Pre Stenosis: 50 Pre AGNEL Flow: oummers 02:26 PM Lesion found in Distal RCA. Pre Stenosis: 50 Pre ANGEL Flow: tsoummers 02:27 PM Lesion found in Proximal LAD. Pre Stenosis: 60 Pre ANGEL Flow: tsoummers 02:27 PM Lesion found in Mid LAD. Pre Stenosis: 60 Pre ANGEL Flow: tsoummers 02:27 PM Lesion found in Proximal Circumflex. Pre Stenosis: 80 Pre ANGEL Flow: tsoummers 02:27 PM Proximal Left Anterior Descending Coronary Artery with 60% stenosis. If graft is supplying this territory, 0 % stenosis. oumm 02:27 PM Mid/Distal Left Anterior Descending Coronary Artery and diagonal branches with 60% stenosis. If graft is supplying this area, 0 % stenosis tsoummers 02:27 PM Circumflex, Obtuse Marginal, Left Posterior Descending, and Left Posterolateral Coronary Arteries with 80 % stenosis. If graft is supplying this area, 0 % stenosis mm 02:32 PM Report given to Lian CLAYTON Pt taken to E Room #17. 14:32 tsoummers 02:32 PM Time: 14:17LOC: 4 = Oriented but drowsy oumm 02:32 PM Time: 14:17 Patient comfortable and pain free: Yes tsoummers 02:32 PM Patient out of room: 14:32 magali Complications Complication None Hemodynamics Pressures Site Systolic/A Wave Diastolic/V Wave Mean AO 95 64 79 AO 98 63 80 AO 99 63 80 LV 108 14 15 LV 110 15 14 AO 104 62 81 AO 114 58 81 AO 120 61 86 Post Procedure Information Blood Pressure: 129/68 mmHg Rhythm: NSR Post procedural instructions were given Closure Device Time Device Success/Fail 11/08/2017 2:28:00 PM Angio-Seal VIP Successful Site Checks Time Location Status Staff Sheath In? Note 02:22 PM Rt Groin No bleeding/hematoma Stephen Zamora RT (R) Pulses Updated by Gisel Humphries RN on 11/08/2017 2:33:36 PM electronically signed on 11/08/2017 2:34:06 PM with status of Final
[2017-11-08] MEDS ORDERED: Tirofiban 12.5 MG/250ML 12.5 MG/250 ML BAG IVC SCH (15:00)
[2017-11-08] MEDS: *HR* Ticagrelor 90 MG TABLET PO SCH (20:04)
[2017-11-08 22:48] LABS: Estimated Average Glucose 134 mg/dl; Hemoglobin A1C 6.3 %
[2017-11-09 04:31] LABS: Immature Granulocytes % 0.4 % (0-4); Red Blood Count 4.14 M/mcL (4.19-5.50); Red Cell Distribution Width 14.6 % (11.5-14.5)
[2017-11-09 04:33] LABS: Basophils % 0.3 %; Eosinophils # 0.2 K/mcL (0.0-0.6); Eosinophils % 3.3 %; Hemoglobin 14.3 g/dL (12.9-16.9); Immature Platelets 4.7 % (1.1-6.1); Lymphocytes # 1.4 K/mcL (0.6-4.6); Lymphocytes % 19.7 %; Mean Corpuscular HGB Conc 34.9 g/dL (31.6-35.5); Mean Corpuscular Hemoglobin 34.5 pg (28.0-33.3); Mean Platelet Volume 10.6 fL (9.4-12.4); Monocytes # 0.8 K/mcL (0.0-1.3); Monocytes % 10.4 %; Neutrophils # 4.8 K/mcL (1.6-8.9); Segmented Neutrophils % 65.9 %
[2017-11-09 04:37] LABS: Platelet Count 96 K/mcL (140-400)
[2017-11-09 04:51] LABS: Alanine Aminotransferase 10 Units/L (7-52); Albumin 3.8 g/dL (3.5-5.7); Albumin/Globulin Ratio 2.1 (1.1-2.2); Alkaline Phosphatase 54 Units/L (34-104); Aspartate Amino Transferase 16 Units/L (13-39); BUN/Creatinine Ratio 17 (6-26); Bilirubin,Total 0.8 mg/dL (0.3-1.0); Blood Urea Nitrogen 12 mg/dL (8-23); Calcium 8.8 mg/dL (8.6-10.3); Carbon Dioxide 27 mEq/L (23-29); Chloride 108 mEq/L (98-107); Globulin 1.8 g/dL (2.4-3.5); Glucose 121 mg/dL (70-105); Osmolality,Calculated 289 (280-300); Potassium 3.9 mEq/L (3.5-5.1); Sodium 139 mEq/L (136-145); Total Protein 5.6 g/dL (6.4-8.9); eGFR For African Americans > 60 (> 60); eGFR For Non-African Americans > 60 (> 60)
[2017-11-09] MEDS: Insulin LISPRO 300 UNITS/3 ML VIAL SQ SCH ×4 (08:05→23:58)
[2017-11-09] MEDS: Aspirin Enteric Coated 81 MG Tablet PO SCH (08:45)
[2017-11-09] MEDS: Ammonium Lactate 30 APPL/225 GM BOTTLE TP SCH ×2 (08:47→20:25)
[2017-11-09] MEDS: *HR* Ticagrelor 90 MG TABLET PO SCH ×2 (08:47→20:26)
[2017-11-09] MEDS: Loratadine 10 MG TABLET PO SCH (08:47)
[2017-11-09] MEDS: Aspirin 81 MG TAB.CHEW PO SCH (08:47)
--- NOTE | 2017-11-09 10:49 | Cardiology Progress Note ---
Date of Encounter: 11/09/17 Time of Encounter: 09:10 Assessment and Plan (1) NSTEMI (non-ST elevated myocardial infarction) Current Visit: Yes Status: Acute - Elevated troponin of 1.07/1.11/0.99 - Atypical chest pain on HPI (substernal, non exertional, not relieved by NTG) - Echo on 11/08/17 shows EF 60% with indeterminate diastolic dysfunction - EKG shows NSR with possible RBBB consistent with EKG in 2012, no ST changes to suggest acute infarct - Left heart catheterization yesterday with 1 drug-eluting stent placed to mid RCA. Noted severe occlusion of circumflex artery at that time. - Patient placed on aspirin and brilinta - Questionable symptoms of chest tightness once last evening and once this morning Plan - Possible repeat LHC this afternoon. NPO - Records requested. - Continue ASA, brilinta, NTG prn, BB, statin (2) CHF (congestive heart failure) Current Visit: No Status: Chronic - Appears euvolemic on exam, not in acute exacerbation - SOB resolved. - Continue current medications Qualifiers: Heart failure type: diastolic Heart failure chronicity: chronic Qualified Code(s): I50.32 - Chronic diastolic (congestive) heart failure (3) COPD (chronic obstructive pulmonary disease) Current Visit: Yes Status: Chronic Not in acute exacerbation Further management per primary team Qualifiers: COPD type: unspecified COPD Qualified Code(s): J44.9 - Chronic obstructive pulmonary disease, unspecified (4) CAD (coronary artery disease) Current Visit: Yes Status: Chronic As above for NSTEMI Qualifiers: Coronary Disease-Associated Artery/Lesion type: [place] artery [place] vs. transplanted heart: [place] heart Associated angina: angina presence unspecified Qualified Code(s): I25.10 - Atherosclerotic heart disease of [place] coronary artery without angina pectoris (5) Diabetes Current Visit: Yes Status: Chronic Well controlled during this admission, BS 121 Further management per primary team Qualifiers: Diabetes mellitus type: type 2 Diabetes mellitus correction insulin use: without correction use Diabetes mellitus complication status: with unspecified complications Qualified Code(s): E11.8 - Type 2 diabetes mellitus with unspecified complications (6) HTN (hypertension) Current Visit: Yes Status: Chronic - Well controlled. BP 112/73 Continue current meds Qualifiers: Hypertension type: essential hypertension Qualified Code(s): I10 - Essential (primary) hypertension (7) HLD (hyperlipidemia) Current Visit: Yes Status: Chronic Continue statin Qualifiers: Hyperlipidemia type: pure hypercholesterolemia Qualified Code(s): E78.00 - Pure hypercholesterolemia, unspecified; E78.0 - Pure hypercholesterolemia Discussion w patient/family: The assessment and plan as outlined above was discussed with the patient and/or family members who expressed understanding and agreement. All questions were answered. Thank you for involving us in the care of your patient. Please call with any questions. Subjective Principal diagnosis: NSTEMI Interval history: Patient seen and examined at bedside this morning. He underwent successful left heart catheterization with 1 stent placement mid RCA yesterday. There is also noted to be occlusion of circumflex artery that time which was not stented. Patient states that overall he is feeling improved over did have some episodes of chest tightness last evening after returning from catheterization as well as 1 episode this morning. Episodes last approximately 45 minutes before resolving. He States That He Is not Feeling Shortness of Breath, further chest pain, nausea, vomiting, diaphoresis. Objective Vital Signs, Last 4 Hours Pulse Resp BP Pulse Ox 11/09/17 07:29 113 17 112/73 94 General: Conversant, No Apparent Distress HEENT: Atraumatic, Normocephaly, Mucus Membranes Moist Neck: No JVD, Normal carotid pulses Cardiac: Normal S1 and S2, No Murmur, Other (Tachycardic, regular rhythm) Lungs: Normal Breath Sounds, No Wheeze, Rales, Rhonchi Neuro: Alert and responsive, No focal deficits noted Abdomen: Soft, Non-Tender Skin: No rashes noted on visualized skin Musculoskeletal: No Chest Wall Tenderness Extremities: No Clubbing, No Cyanosis, No Edema, Normal Pulses Results 11/09/17 03:52 11/09/17 03:52 Lab Results 11/08/17 11/09/17 11/09/17 10:30 03:52 03:52 WBC 7.3 Hgb 14.3 Hct 41.0 Plt Count 96 L APTT 59.7 H Sodium 139 Potassium 3.9 Chloride 108 H Carbon Dioxide 27 BUN 12 Creatinine 0.70 Glucose 121 H Calcium 8.8 Total Bilirubin 0.8 AST 16 ALT 10 Alkaline Phosphatase 54 Consult Discharge Plan - Plan [facility]errals: [facility]Primary Care Provider[facility] -
[2017-11-09] MEDS: Isosorbide MONOnitrate (24 HR) 60 MG TAB.ER.24H PO SCH (12:00)
[2017-11-09] MEDS: Eucerin Cream 57 GM TUBE TP SCH (13:20)
--- NOTE | 2017-11-09 15:04 | Internal Med Progress Note ---
<Gilson Briggs - Last Filed: 11/09/17 15:12> Date of Encounter: 11/09/17 Time of Encounter: 08:45 - Assessment and plan (1) NSTEMI (non-ST elevated myocardial infarction) Current Visit: Yes Status: Acute Assessment and plan: S/p LHC with SAL to mid RCA yesterday Denies chest pain, diaphoresis, shortness of breath, fever, or groin pain Plan: - 2nd stent tomorrow AM - Continue heparin gtt, ASA, NTG prn, BB, statin - Has received Brillinta loading dose and maintenance dose; no hypotension, excess bleed, monitoring - Consider addition of madai-i (already on DAPT/BB/Statin) after 2nd [facility] tomorrow (2) CHF (congestive heart failure) Current Visit: No Status: Chronic Assessment and plan: Hx of chronic CHF. Stable. Pt. denies current use of diuretic. Monitor I&O and daily weight. Qualifiers: Heart failure type: diastolic Heart failure chronicity: chronic Qualified Code(s): I50.32 - Chronic diastolic (congestive) heart failure (3) COPD (chronic obstructive pulmonary disease) Current Visit: Yes Status: Chronic Assessment and plan: Hx of chronic COPD. Stable . Qualifiers: COPD type: unspecified COPD Qualified Code(s): J44.9 - Chronic obstructive pulmonary disease, unspecified (4) CAD (coronary artery disease) Current Visit: Yes Status: Chronic Assessment and plan: Hx of chronic CAD. Continuous cardiac telemetry. S/p SAL to mid RCA with plan for 2nd stent tomorrow as above Consider addition of madai-i (already on DAPT/BB/Statin) after 2nd [facility] tomorrow Qualifiers: Coronary Disease-Associated Artery/Lesion type: [place] artery [place] vs. transplanted heart: [place] heart Associated angina: angina presence unspecified Qualified Code(s): I25.10 - Atherosclerotic heart disease of [place] coronary artery without angina pectoris (5) Diabetes Current Visit: Yes Status: Chronic Assessment and plan: Hx of chronic diabetes controlled by oral anti-hyperglycemic medications. Will hold oral medications and add low-dose correction insulin sliding scale with hypoglycemic protocol. Patient NPO, will follow q6h accucheck for now until after 2nd [facility] Qualifiers: Diabetes mellitus type: type 2 Diabetes mellitus prison insulin use: without termite control servicer use Diabetes mellitus complication status: with unspecified complications Qualified Code(s): E11.8 - Type 2 diabetes mellitus with unspecified complications (6) GERD (gastroesophageal reflux disease) Current Visit: Yes Status: Chronic Assessment and plan: Hx of chronic GERD. Continue patient's by mouth Prilosec. IVP Zofran 4 mg every 6 hours when necessary for nausea and vomiting. Qualifiers: Esophagitis presence: esophagitis presence not specified Qualified Code(s) : K21.9 - Gastro-esophageal reflux disease without esophagitis (7) HTN (hypertension) Current Visit: Yes Status: Chronic Assessment and plan: Hx of chronic HTN. Monitor pt. and VS. Continue pts. Lopressor and Hytrin. Qualifiers: Hypertension type: essential hypertension Qualified Code(s): I10 - Essential (primary) hypertension (8) HLD (hyperlipidemia) Current Visit: Yes Status: Chronic Assessment and plan: Hx of chronic HLD. Continue pts. Pravastatin. Qualifiers: Hyperlipidemia type: pure hypercholesterolemia Qualified Code(s): E78.00 - Pure hypercholesterolemia, unspecified; E78.0 - Pure hypercholesterolemia (9) DVT prophylaxis Current Visit: Yes Status: Acute Assessment and plan: Patient placed on heparin drip this AM, started on Brilinta post LHC. Consider starting SQ heparin. - Time Spent With Patient Total time spent is greater than 50% in coordination of care (as documented) at patient's floor/unit and/or counseling patient: - Subjective Interval history: Mr. Mcclain tolerated [facility] yesterday 11/08 well; denies chest discomfort, shortness of breath, diaphoresis, fever, or groin pain. He is planned to have 2nd intervention tomorrow morning. - Constitutional Vitals: Temp Pulse Resp BP Pulse Ox 98.5 F 89 18 123/68 96 11/09/17 04:25 11/09/17 11:33 11/09/17 11:33 11/09/17 11:33 11/09/17 11:33 General appearance: Present: cooperative, A&O X 3, pleasant, no acute distress, answers questions appropriately - Head Head exam: Present: atraumatic, normal inspection - Eye Eye exam: Present: EOMI, sclera anicteric - ENT ENT exam: Present: mucous membranes moist - Neck Neck exam general surgery: Present: full ROM. Absent: lymphadenopathy - Respiratory Respiratory exam: Present: CTAB. Absent: accessory muscle use, stridor, wheezes - Cardiovascular Cardiovascular exam: Present: RRR, +S1, +S2. Absent: JVD, systolic murmur - GI/Abdominal GI/Abdominal exam: Present: no peritoneal signs. Absent: guarding - Neurological Exam Neurological exam: Absent: facial droop, speech deficit - Skin Skin exam: Absent: cyanosis, diaphoretic Internal Medicine: Result - Labs CBC & Chem 7: 11/09/17 03:52 11/09/17 03:52 Labs: Short CBC 11/09/17 Range/Units 03:52 WBC 7.3 (4.3-11.1) K/mcL Hgb 14.3 (12.9-16.9) g/dL Hct 41.0 (37.5-50.1) % Plt Count 96 L (140-400) K/mcL Neutrophils # 4.8 (1.6-8.9) K/mcL BMP 11/09/17 03:52 Sodium 139 Potassium 3.9 Chloride 108 H Carbon Dioxide 27 BUN 12 Creatinine 0.70 Glucose 121 H Calcium 8.8 Liver Function 11/09/17 Range/Units 03:52 Total Bilirubin 0.8 (0.3-1.0) mg/dL AST 16 (13-39) Units/L ALT 10 (7-52) Units/L Alkaline Phosphatase 54 (34-104) Units/L Albumin 3.8 (3.5-5.7) g/dL - ABG Interpretation ABG results: PT/INR, D-dimer PT 11.8 Seconds (9.4-12.1) 11/08/17 03:13 Consult Discharge Plan - Plan [facility]errals[facility] Care Provider[facility] - <Salvador Gregory - Last Filed: 11/09/17 15:20> Date of Encounter: 11/09/17 - Assessment and plan (1) NSTEMI (non-ST elevated myocardial infarction) Current Visit: Yes Status: Acute (2) CHF (congestive heart failure) Current Visit: No Status: Chronic Qualifiers: Heart failure type: diastolic Heart failure chronicity: chronic Qualified Code(s): I50.32 - Chronic diastolic (congestive) heart failure (3) COPD (chronic obstructive pulmonary disease) Current Visit: Yes Status: Chronic Qualifiers: COPD type: unspecified COPD Qualified Code(s): J44.9 - Chronic obstructive pulmonary disease, unspecified (4) CAD (coronary artery disease) Current Visit: Yes Status: Chronic Qualifiers: Coronary Disease-Associated Artery/Lesion type: [place] artery [place] vs. transplanted heart: [place] heart Associated angina: angina presence unspecified Qualified Code(s): I25.10 - Atherosclerotic heart disease of [place] coronary artery without angina pectoris (5) Diabetes Current Visit: Yes Status: Chronic Qualifiers: Diabetes mellitus type: type 2 Diabetes mellitus termite control servicer insulin use: without prison use Diabetes mellitus complication status: with unspecified complications Qualified Code(s): E11.8 - Type 2 diabetes mellitus with unspecified complications (6) GERD (gastroesophageal reflux disease) Current Visit: Yes Status: Chronic Qualifiers: Esophagitis presence: esophagitis presence not specified Qualified Code(s) : K21.9 - Gastro-esophageal reflux disease without esophagitis (7) HTN (hypertension) Current Visit: Yes Status: Chronic Qualifiers: Hypertension type: essential hypertension Qualified Code(s): I10 - Essential (primary) hypertension (8) HLD (hyperlipidemia) Current Visit: Yes Status: Chronic Qualifiers: Hyperlipidemia type: pure hypercholesterolemia Qualified Code(s): E78.00 - Pure hypercholesterolemia, unspecified; E78.0 - Pure hypercholesterolemia (9) DVT prophylaxis Current Visit: Yes Status: Acute - Time Spent With Patient Total time spent is greater than 50% in coordination of care (as documented) at patient's floor/unit and/or counseling patient: - Constitutional Vitals: Temp Pulse Resp BP Pulse Ox 98.5 F 89 18 123/68 96 11/09/17 04:25 11/09/17 11:33 11/09/17 11:33 11/09/17 11:33 11/09/17 11:33 Internal Medicine: Result - Labs CBC & Chem 7: 11/09/17 03:52 11/09/17 03:52 Labs: Short CBC 11/09/17 Range/Units 03:52 WBC 7.3 (4.3-11.1) K/mcL Hgb 14.3 (12.9-16.9) g/dL Hct 41.0 (37.5-50.1) % Plt Count 96 L (140-400) K/mcL Neutrophils # 4.8 (1.6-8.9) K/mcL BMP 11/09/17 03:52 Sodium 139 Potassium 3.9 Chloride 108 H Carbon Dioxide 27 BUN 12 Creatinine 0.70 Glucose 121 H Calcium 8.8 Liver Function 11/09/17 Range/Units 03:52 Total Bilirubin 0.8 (0.3-1.0) mg/dL AST 16 (13-39) Units/L ALT 10 (7-52) Units/L Alkaline Phosphatase 54 (34-104) Units/L Albumin 3.8 (3.5-5.7) g/dL - ABG Interpretation ABG results: PT/INR, D-dimer PT 11.8 Seconds (9.4-12.1) 11/08/17 03:13 - Attending Attestation I performed an independent interview and examine this patient. I agree with the findings, assessment, and plan of Dr. Briggs, internal medicine resident. Cardiology input noted and appreciated. Plan for left heart catheterization today or tomorrow. I discussed the case with the family and the patient at the bedside. Patient is chest pain-free.
--- NOTE | 2017-11-09 16:30 | Electrocardiograph Report ---
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
--- NOTE | 2017-11-09 16:38 | Electrocardiograph Report ---
[place] [id number] Test Date: 2017-11-07 Pat Name: Bear Mcclain Department: 103 Room: 2NE17 Gender: M Human Services Manager: : 1940 Requested By: [id number] Order Number: [id number] Reading MD: Roxane Majano Measurements Intervals [place] Rate: 76 P: 42 TN: 170 QRS: -55 QRSD: 119 T: 17 QT: 406 QTc: 436 Interpretive Statements SINUS RHYTHM LEFT AXIS DEVIATION [QRS AXIS < -30] INCOMPLETE RIGHT BUNDLE BRANCH BLOCK [90+ ms QRS DURATION, TERMINAL R IN V1/V2, 40+ ms S IN I/aVL/V4/V5/V6] MINIMAL VOLTAGE CRITERIA FOR LVH, CONSIDER NORMAL VARIANT [MEETS CRITERIA IN ONE OF: R(aVL), S(V1), R(V5), R(V5/V6)+S(V1)] ARTIFACT Electronically Signed On 11-09-2017 16:36:03 EDT by Roxane Majano
[2017-11-10 01:58] LABS: Basophils % 0.4 %; Eosinophils # 0.2 K/mcL (0.0-0.6); Hemoglobin 12.4 g/dL (12.9-16.9); Immature Granulocytes % 0.4 % (0-4); Immature Platelets 5.8 % (1.1-6.1); Lymphocytes # 1.5 K/mcL (0.6-4.6); Lymphocytes % 20.7 %; Mean Corpuscular HGB Conc 34.4 g/dL (31.6-35.5); Mean Corpuscular Volume 98.6 fL (83.0-100.0); Mean Platelet Volume 10.5 fL (9.4-12.4); Monocytes # 0.8 K/mcL (0.0-1.3); Monocytes % 10.7 %; Neutrophils # 4.8 K/mcL (1.6-8.9); Red Blood Count 3.65 M/mcL (4.19-5.50); Red Cell Distribution Width 14.6 % (11.5-14.5); Segmented Neutrophils % 64.8 %
[2017-11-10 02:07] LABS: Platelet Count 94 K/mcL (140-400)
[2017-11-10 02:14] LABS: Alanine Aminotransferase 9 Units/L (7-52); Albumin 3.6 g/dL (3.5-5.7); Albumin/Globulin Ratio 2.1 (1.1-2.2); Alkaline Phosphatase 59 Units/L (34-104); Aspartate Amino Transferase 20 Units/L (13-39); BUN/Creatinine Ratio 27 (6-26); Bilirubin,Total 0.5 mg/dL (0.3-1.0); Blood Urea Nitrogen 19 mg/dL (8-23); Calcium 9.1 mg/dL (8.6-10.3); Carbon Dioxide 25 mEq/L (23-29); Chloride 107 mEq/L (98-107); Globulin 1.7 g/dL (2.4-3.5); Glucose 149 mg/dL (70-105); Osmolality,Calculated 291 (280-300); Sodium 138 mEq/L (136-145); Total Protein 5.3 g/dL (6.4-8.9); eGFR For African Americans > 60 (> 60); eGFR For Non-African Americans > 60 (> 60)
[2017-11-10] MEDS: Insulin LISPRO 300 UNITS/3 ML VIAL SQ SCH ×3 (06:04→18:07)
[2017-11-10] MEDS: Isosorbide MONOnitrate (24 HR) 60 MG TAB.ER.24H PO SCH (09:49)
[2017-11-10] MEDS: *HR* Ticagrelor 90 MG TABLET PO SCH ×2 (09:50→20:01)
[2017-11-10] MEDS: Aspirin 81 MG TAB.CHEW PO SCH (09:50)
[2017-11-10] MEDS: Loratadine 10 MG TABLET PO SCH (09:50)
[2017-11-10] MEDS: Ammonium Lactate 30 APPL/225 GM BOTTLE TP SCH ×2 (09:51→20:01)
[2017-11-10] MEDS: Eucerin Cream 57 GM TUBE TP SCH (09:52)
--- NOTE | 2017-11-10 10:18 | Internal Med Progress Note ---
<Deysi Cabrales Jen - Last Filed: 11/10/17 10:16> Date of Encounter: 11/10/17 Time of Encounter: 10:17 - Assessment and plan (1) NSTEMI (non-ST elevated myocardial infarction) Current Visit: Yes Status: Acute Assessment and plan: S/p LHC with SAL to mid RCA yesterday Denies chest pain, diaphoresis, shortness of breath, fever, or groin pain Plan: - 2nd stent today - Continue heparin gtt, ASA, NTG prn, BB, statin - Has received Brillinta loading dose and maintenance dose; no hypotension, excess bleeding, monitoring - Consider addition of madai-i (already on DAPT/BB/Statin) (2) CHF (congestive heart failure) Current Visit: Yes Status: Chronic Assessment and plan: Hx of chronic CHF. Stable. Pt. denies current use of diuretic. Monitor I&O and daily weight. Qualifiers: Heart failure type: diastolic Heart failure chronicity: chronic Qualified Code(s): I50.32 - Chronic diastolic (congestive) heart failure (3) COPD (chronic obstructive pulmonary disease) Current Visit: Yes Status: Chronic Assessment and plan: Hx of chronic COPD. Stable Qualifiers: COPD type: unspecified COPD Qualified Code(s): J44.9 - Chronic obstructive pulmonary disease, unspecified (4) CAD (coronary artery disease) Current Visit: Yes Status: Chronic Assessment and plan: Hx of chronic CAD. Continuous cardiac telemetry. S/p SAL to mid RCA with plan for 2nd stent tomorrow as above Consider addition of madai-i (already on DAPT/BB/Statin) Qualifiers: Coronary Disease-Associated Artery/Lesion type: [place] artery [place] vs. transplanted heart: [place] heart Associated angina: angina presence unspecified Qualified Code(s): I25.10 - Atherosclerotic heart disease of [place] coronary artery without angina pectoris (5) Diabetes Current Visit: Yes Status: Chronic Assessment and plan: Hx of chronic diabetes controlled by oral anti-hyperglycemic medications. Will hold oral medications and add low-dose correction insulin sliding scale with hypoglycemic protocol. Patient NPO, will follow q6h accucheck for now until after 2nd [facility] Qualifiers: Diabetes mellitus type: type 2 Diabetes mellitus senior care insulin use: without termite treater use Diabetes mellitus complication status: with unspecified complications Qualified Code(s): E11.8 - Type 2 diabetes mellitus with unspecified complications (6) GERD (gastroesophageal reflux disease) Current Visit: Yes Status: Chronic Assessment and plan: Hx of chronic GERD. Continue patient's by mouth Prilosec. IVP Zofran 4 mg every 6 hours when necessary for nausea and vomiting. Qualifiers: Esophagitis presence: esophagitis presence not specified Qualified Code(s) : K21.9 - Gastro-esophageal reflux disease without esophagitis (7) HTN (hypertension) Current Visit: Yes Status: Chronic Assessment and plan: Hx of chronic HTN. Monitor pt. and VS. Continue pts. Lopressor and Hytrin. Cardiology consulted Qualifiers: Hypertension type: essential hypertension Qualified Code(s): I10 - Essential (primary) hypertension (8) HLD (hyperlipidemia) Current Visit: Yes Status: Chronic Assessment and plan: Hx of chronic HLD. Continue pts. Pravastatin. Qualifiers: Hyperlipidemia type: pure hypercholesterolemia Qualified Code(s): E78.00 - Pure hypercholesterolemia, unspecified; E78.0 - Pure hypercholesterolemia (9) DVT prophylaxis Current Visit: Yes Status: Acute Assessment and plan: started on Brilinta post LHC. SCDs - Time Spent With Patient Total time spent is greater than 50% in coordination of care (as documented) at patient's floor/unit and/or counseling patient: - Subjective Interval history: Patient states he is doing well. Denies any chest pain, palpitations or shortness of breath. Awaiting second stent placement today. - Constitutional Vitals: Temp Pulse Resp BP Pulse Ox 98.1 F 84 16 97/60 94 11/10/17 07:05 11/10/17 07:05 11/10/17 07:05 11/10/17 07:05 11/10/17 07:05 General appearance: Present: cooperative, A&O X 3, pleasant, no acute distress, answers questions appropriately - Head Head exam: Present: atraumatic, normocephalic - Respiratory Respiratory exam: Present: CTAB. Absent: accessory muscle use, rales, rhonchi, wheezes - Cardiovascular Cardiovascular exam: Present: RRR, +S1, +S2. Absent: diastolic murmur, gallop, rubs, systolic murmur - GI/Abdominal GI/Abdominal exam: Present: normal bowel sounds, soft, no peritoneal signs. Absent: distended, tenderness - Neurological Exam Neurological exam: Present: alert, oriented X3, no focal deficits Internal Medicine: Result - Labs CBC & Chem 7: 11/10/17 01:06 11/10/17 01:06 Labs: Short CBC 11/10/17 Range/Units 01:06 WBC 7.4 (4.3-11.1) K/mcL Hgb 12.4 L D (12.9-16.9) g/dL Hct 36.0 L (37.5-50.1) % Plt Count 94 L (140-400) K/mcL Neutrophils # 4.8 (1.6-8.9) K/mcL BMP 11/10/17 01:06 Sodium 138 Potassium 4.0 Chloride 107 Carbon Dioxide 25 BUN 19 Creatinine 0.71 Glucose 149 H Calcium 9.1 Liver Function 11/10/17 Range/Units 01:06 Total Bilirubin 0.5 (0.3-1.0) mg/dL AST 20 (13-39) Units/L ALT 9 (7-52) Units/L Alkaline Phosphatase 59 (34-104) Units/L Albumin 3.6 (3.5-5.7) g/dL - ABG Interpretation ABG results: PT/INR, D-dimer PT 11.8 Seconds (9.4-12.1) 11/08/17 03:13 Consult Discharge Plan - Plan [facility]errals: [facility] [Primary Care Provider[facility] - <Salvador Gregory - Last Filed: 11/10/17 17:09> Date of Encounter: 11/10/17 - Assessment and plan (1) NSTEMI (non-ST elevated myocardial infarction) Current Visit: Yes Status: Acute (2) CHF (congestive heart failure) Current Visit: Yes Status: Chronic Qualifiers: Heart failure type: diastolic Heart failure chronicity: chronic Qualified Code(s): I50.32 - Chronic diastolic (congestive) heart failure (3) COPD (chronic obstructive pulmonary disease) Current Visit: Yes Status: Chronic Qualifiers: COPD type: unspecified COPD Qualified Code(s): J44.9 - Chronic obstructive pulmonary disease, unspecified (4) CAD (coronary artery disease) Current Visit: Yes Status: Chronic Qualifiers: Coronary Disease-Associated Artery/Lesion type: [place] artery [place] vs. transplanted heart: [place] heart Associated angina: angina presence unspecified Qualified Code(s): I25.10 - Atherosclerotic heart disease of [place] coronary artery without angina pectoris (5) Diabetes Current Visit: Yes Status: Chronic Qualifiers: Diabetes mellitus type: type 2 Diabetes mellitus senior care insulin use: without senior care use Diabetes mellitus complication status: with unspecified complications Qualified Code(s): E11.8 - Type 2 diabetes mellitus with unspecified complications (6) GERD (gastroesophageal reflux disease) Current Visit: Yes Status: Chronic Qualifiers: Esophagitis presence: esophagitis presence not specified Qualified Code(s) : K21.9 - Gastro-esophageal reflux disease without esophagitis (7) HTN (hypertension) Current Visit: Yes Status: Chronic Qualifiers: Hypertension type: essential hypertension Qualified Code(s): I10 - Essential (primary) hypertension (8) HLD (hyperlipidemia) Current Visit: Yes Status: Chronic Qualifiers: Hyperlipidemia type: pure hypercholesterolemia Qualified Code(s): E78.00 - Pure hypercholesterolemia, unspecified; E78.0 - Pure hypercholesterolemia (9) DVT prophylaxis Current Visit: Yes Status: Acute - Time Spent With Patient Total time spent is greater than 50% in coordination of care (as documented) at patient's floor/unit and/or counseling patient: - Constitutional Vitals: Temp Pulse Resp BP Pulse Ox 98.1 F 83 16 109/69 92 11/10/17 11:12 11/10/17 11:12 11/10/17 11:12 11/10/17 11:12 11/10/17 11:44 Internal Medicine: Result - Labs CBC & Chem 7: 11/10/17 01:06 11/10/17 01:06 Labs: Short CBC 11/10/17 Range/Units 01:06 WBC 7.4 (4.3-11.1) K/mcL Hgb 12.4 L D (12.9-16.9) g/dL Hct 36.0 L (37.5-50.1) % Plt Count 94 L (140-400) K/mcL Neutrophils # 4.8 (1.6-8.9) K/mcL BMP 11/10/17 01:06 Sodium 138 Potassium 4.0 Chloride 107 Carbon Dioxide 25 BUN 19 Creatinine 0.71 Glucose 149 H Calcium 9.1 Liver Function 11/10/17 Range/Units 01:06 Total Bilirubin 0.5 (0.3-1.0) mg/dL AST 20 (13-39) Units/L ALT 9 (7-52) Units/L Alkaline Phosphatase 59 (34-104) Units/L Albumin 3.6 (3.5-5.7) g/dL - ABG Interpretation ABG results: PT/INR, D-dimer PT 11.8 Seconds (9.4-12.1) 11/08/17 03:13 - Attending Attestation I performed an independent interview and exam of this patient. I agree with the findings, assessment, and plan of Dr. Cabrales, internal medicine resident. Doing well. Plans for repeat heart catheterization today with stenting most likely. Patient remains pain-free. I discussed the case briefly with family at bedside.
[2017-11-10] MEDS ORDERED: *HR* Heparin 10,000 UNIT/10 ML VIAL ONE ×2 (13:29→13:43)
[2017-11-10] MEDS ORDERED: 0.9 % Sodium Chloride 1,000 ML ONE ×2 (13:29→13:38)
[2017-11-10] MEDS ORDERED: Heparin 1,000 UNITS/500 mL 500 ML ONE (13:29)
[2017-11-10] MEDS ORDERED: ISOVUE-370 200 ML INFUS..BTL IV ONE ×2 (13:29→14:32)
[2017-11-10] MEDS ORDERED: *HR* Midazolam HCl 2 MG/2 ML VIAL ONE (13:43)
[2017-11-10] MEDS ORDERED: *HR* FentaNYL (PF) 100 MCG/2 ML VIAL ONE (13:43)
[2017-11-10] MEDS ORDERED: Tirofiban 12.5 MG/250ML 12.5 MG/250 ML BAG ONE (13:43)
[2017-11-10] MEDS ORDERED: Nitroglycerin 1,000 MCG/10 ML VIAL IV ONE (14:01)
--- NOTE | 2017-11-10 14:07 | Pre-Sedation Evaluation ---
Pre-sedation evaluation - Pre-sedation checklist Date of procedure: 11/08/17 Procedure: [facility] Recent Vitals: Last Vital Signs Temp 98.1 F 11/10/17 11:12 Pulse 83 11/10/17 11:12 Resp 16 11/10/17 11:12 BP 109/69 11/10/17 11:12 Pulse Ox 92 11/10/17 11:44 H&P (including ROS) documented in medical record: Yes Previous reaction to sedatives/anesthetics: No Dietary Status: NPO after Midnight Dentition: No loose teeth or bridges ASA Classification *see protocol: CLASS II-Mild systemic disease Cardiac Registry (Cardio Only) - Functional Capacity Functional Capacity: >=4 METS with symptoms - Clincal Frailty Scale Clinical Frailty Scale: Mildly Frail
--- NOTE | 2017-11-10 17:16 | Invasive Diagnostic Lab Proc ---
Name: Bear Mcclain Date of Study: 11/10/2017 Date: 1940 Ht: 70.9in Medical Record#: [id number] Age: 76 Wt: 167.55lb Gender: Male BSA: 1.95 Order #: [id number] BMI: 23.46 Physicians Procedure Physician: Rajan Jennings MD Referring MD: Referring MD: Staff Name Position Time In DaishacameronGisel penn RN Monitor 01:45 PM Sae Elise RN Plastics Nurse 01:45 PM Tiffanie Sanford RT (R) Scrub 01:45 PM Magi Lo RT 01:45 PM Indications Indication Non-Stemi coronary artery disease Procedures Performed Procedure PRQ CARD SAL STENT W/ANGIO 1 VSL Pre-Procedure Checklist Informed consent is complete signed and on chart. H&P is on chart. ID band is on and ID verified with patient. Patient NPO for procedure The procedure was described for the patient and questions were answered. Blood Pressure: 112/73 ECG is on chart. Plan of Care Patient will tolerate the procedure without complications. Adequate level of comfort will be maintained. Hemodynamics will remain stable Patient will recover from procedure without complications. Respiratory function will be maintained. Cardiac rhythm will remain stable. Patient temperature will be maintained. Patient and/or family have verbalized understanding of the procedure. Patient Education Chief Complaint/Reason for Test: Cardiac Cath Developmental Category: Geriatric (65+ years) Developmentally Appropriate for Age: Yes Learning Barriers: None Education Needs: Procedure Education Method: Verbal Information Taught: Cardiac Cath Educational Evaluation: Able to repeat information Intravenous Access Time IV Size Location DC'd Fluid/Drip Rate Units RN 01:39 PM 20g 1 05/20" Patent On Arrival Rt Arm Allergies ascorbic acid Vital Signs Time BP (mmHg) HR (bpm) O2 Sat. RR (bpm) LOC 01:40 PM 112 / 73 113 94 % 17 5 = Fully awake and oriented or at pre-proc level 02:09 PM / % 4 = Oriented but drowsy 02:09 PM / % 4 = Oriented but drowsy 01:53 PM 124 / 78 86 97 % 01:58 PM 127 / 69 81 96 % 02:03 PM 122 / 67 74 96 % 02:08 PM 117 / 67 74 97 % 02:13 PM 122 / 70 75 96 % 02:18 PM 120 / 67 84 98 % 02:23 PM 125 / 74 81 98 % 02:28 PM 118 / 73 84 99 % 02:33 PM 131 / 75 83 98 % 02:51 PM 130 / 70 77 96 % 16 5 = Fully awake and oriented or at pre-proc level 03:20 PM 118 / 70 79 95 % 16 5 = Fully awake and oriented or at pre-proc level 03:37 PM 127 / 73 82 96 % 16 5 = Fully awake and oriented or at pre-proc level 03:45 PM 122 / 75 80 97 % 16 5 = Fully awake and oriented or at pre-proc level 04:00 PM 119 / 71 71 95 % 18 5 = Fully awake and oriented or at pre-proc level 04:15 PM 129 / 66 72 95 % 16 5 = Fully awake and oriented or at pre-proc level 04:35 PM 119 / 65 75 99 % 16 5 = Fully awake and oriented or at pre-proc level 04:47 PM 125 / 71 75 99 % 16 5 = Fully awake and oriented or at pre-proc level 05:05 PM 130 / 69 76 99 % 16 5 = Fully awake and oriented or at pre-proc level Procedural Medications Time Medication Dose Units Method Given By 01:55 PM Oxygen 2 L/min nasal cannula Sae Elise RN 01:55 PM Versed 1 mg Intravenous Sae Elise RN 01:55 PM Fentanyl 50 mcg Intravenous Sae Elise RN 02:11 PM Lidocaine 2% 10 ml Subcutaneous Rajan Jennings MD 02:15 PM Heparin 3000 units Intraarterial Rock Jennings MD 02:16 PM Aggrastat Bolus: 37.5 ml Intravenous Sae Elise RN 02:16 PM Aggrastat 12.5mg/250ml 13.5 ml/hr Intravenous Sae Elise RN ASA Classification: CLASS II- Mild systemic disease (i.e. well-controlled diabetes, hypertension, asthma, cigarette smoking) Coy Score Preprocedure Postprocedure Activity 2- Moves 4 extremities sustained head lift Activity 2- Moves 4 extremities sustained head lift Circulation 2- SBP +/= 20 points of pre-anesthetic level Circulation 2- SBP +/= 20 points of pre-anesthetic level Consciousness 2- Awake and alert oriented x 3 Consciousness 2- Awake and alert oriented x 3 O2 Saturation 2- Able to maintain O2 satruation of 92% on room air O2 Saturation 2- Able to maintain O2 satruation of 92% on room air Respiratory 2- Able to deep breathe and cough well Respiratory 2- Able to deep breathe and cough well Total Score 10 Total Score 10 Contrast Agent: Isovue Diagnostic Contrast: 153 ml Total Contrast: 153 ml Fluoro Dose: 86 mGy Activated Clotting Time Time Seconds to Clot 02:31 PM 399 02:40 PM 237 03:50 PM 191 04:45 PM 166 Procedure Log Time Note Enter By 01:37 PM 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 [email or web address] 01:40 PM Procedure start 13:40 tsoummers 01:45 PM Gisel Humphries RN Position: Monitor Time in: 13:45 tsoummers 01:45 PM Sae Elise RN Position: Plastics Nurse Time in: 13:45 oummers 01:45 PM Tiffanie Sanford RT (R) Position: Scrub Time in: 13:45 tsoummers 01:45 PM Magi Lo Position: Time in: 13:45 tsoummers 01:45 PM Case Delayed No oummers 01:46 PM Hair removed from procedure site in procedure lab using clippers. Bilateral groin prepped with Chloraprep by Magi Lo, then patient was draped. Skin intact. tsoummers 01:46 PM CathStat 01:50 PM Vitals capture started with the following parameters, Patient=Adult, Interval=5 min, Initial Tiuuszgb=204 mmHg, Deflation Rate=3 mmHg, Cuff placed on Right Arm 01:52 PM Vitals capture started with the following parameters, Patient=Adult, Interval=5 min, Initial Mmsasyxl=015 mmHg, Deflation Rate=3 mmHg, Cuff placed on Right Arm 01:53 PM HR=86 bpm, USSW=392/78 mmhg, SpO2=97.0 % 01:54 PM Recorded ECG: HR=82 Condition=Condition 1 01:54 PM Recorded ECG: HR=87 Condition=Condition 1 01:55 PM Time: 13:55 Oxygen on at 2 L/min per nasal cannula by Sae Elise RN 01:55 PM Time: 13:55 Versed 1 mg Intravenous Given by Sae Elise RN 01:55 PM Time: 13:55 Fentanyl 50 mcg Intravenous Given by Sae Elise RN 01:58 PM HR=81 bpm, BIOO=917/69 mmhg, SpO2=96.0 % 02:00 PM Pressure channel 1 zeroed. 02:03 PM HR=74 bpm, WYYN=092/67 mmhg, SpO2=96.0 % 02:08 PM HR=74 bpm, TIDZ=258/67 mmhg, SpO2=97.0 % 02:09 PM Time: 14:09 Patient comfortable and pain free: Yes [email or web address] 02:09 PM Time: 14:09LOC: 4 = Oriented but drowsy tsoummfili 02:09 PM Time out performed according to hospital policy fili 02:11 PM Time: 14:11 10 ml Lidocaine 2% to left groin Subcutaneous Given by Rajan Jennings MD brina 02:12 PM ASA Class CLASS II- Mild systemic disease (i.e. well-controlled diabetes, hypertension, asthma, cigarette smoking) mm 02:13 PM HR=75 bpm, TMAZ=199/70 mmhg, SpO2=96.0 %, Comment=nsr 02:13 PM Access obtained by percutaneous puncture. 6Fr 10cm Terumo Anna sheath placed in left Femoral artery. [id number] oummers 02:14 PM 0.035 145cm Navilyst 3mmJ wire [id number] mm 02:14 PM Inflation device was opened. tsmm 02:14 PM 6Fr XB LAD 3.5 Conesus Bright-Tip guide catheter was used to cannulate the PCI vessel successfully. reused? No oumm 02:14 PM wire removed brina 02:15 PM Time: 14:15 Heparin 3000 units Intraarterial Given by Rock Jennings MD 02:16 PM Time: 14:16 Aggrastat Bolus: 37.5 ml Intravenous Given by Sae Elise RN Davison pump magali 02:16 PM Time: 14:16 Aggrastat 12.5mg/250ml 13.5 ml/hr Intravenous Given by Sae Elise RN Davison pump 02:17 PM LCA angiography performed in multiple views. mm 02:17 PM Recorded Pressure: Ao, HR=77, Condition=Condition 1 (Aorta) Ao 111/48/74 02:18 PM Coronary Dominance: right per previous cath tsoumm 02:18 PM HR=84 bpm, LNJH=936/67 mmhg, SpO2=98.0 % 02:19 PM .014 [employer] [place] 180cm guide wire across target lesion- successful. reused? No tsoummers 02:19 PM Lesion found in Proximal Circumflex. Pre Stenosis: 80 Pre ANGEL Flow: 3: Complete and Brisk Flow/Perfusion tsoumm 02:20 PM Circumflex, Obtuse Marginal, Left Posterior Descending, and Left Posterolateral Coronary Arteries with 80 % stenosis. If graft is supplying this area, 0 % stenosis tsoumm 02:20 PM 2.0 mm x 12 mm Emerge Monorail balloon across target lesion- successful. reused? No tsoumm 02:21 PM Balloon inflated @ 6 tamir for 8 seconds tsoumm 02:21 PM Balloon inflated @ 6 tamir for 12 seconds tsoumm 02:22 PM Balloon inflated @ 6 tamir for 12 seconds tsoumm 02:22 PM Balloon catheter removed intact. tsoumm 02:23 PM HR=81 bpm, KBVA=742/74 mmhg, SpO2=98.0 %, Comment=nsr 02:23 PM Recorded Pressure: Ao, HR=79, Condition=Condition 1 (Aorta) Ao 116/49/77 02:24 PM Time: 14:09LOC: 4 = Oriented but drowsy tsoumm 02:24 PM Time: 14:09 Patient comfortable and pain free: Yes tsoumm 02:25 PM 2.5mm x 16mm Synergy drug-eluting stent across target lesion- successful Lot #[id number] tsoumm 02:28 PM HR=84 bpm, YQOS=151/73 mmhg, SpO2=99.0 %, Comment=nsr 02:28 PM Stent deployed @ 9 tamir for 17 seconds tsoumm 02:29 PM Stent balloon reinflated @ 14 tamir for 15 seconds tsoumm 02:30 PM Recorded Pressure: Ao, HR=88, Condition=Condition 1 (Aorta) Ao 127/53/85 02:31 PM Stent delivery system removed intact. tsoummers 02:31 PM At 14:31 the ACT was 399 seconds. tsoummers 02:31 PM 3.0mm x 12mm Synergy drug-eluting stent across target lesion- successful Lot #[id number] tsoumm 02:33 PM Stent deployed @ 11 tamir for 8 seconds tsoumm 02:33 PM HR=83 bpm, HDEP=780/75 mmhg, SpO2=98.0 % 02:33 PM Stent balloon reinflated @ 15 tamir for 8 seconds tsoumm 02:34 PM Guide wire removed intact. tsoumm 02:34 PM Stent delivery system removed intact. tsoummers 02:34 PM Recorded Pressure: Ao, HR=82, Condition=Condition 1 (Aorta) Ao 02:35 PM Guide catheter removed intact. tsoummers 02:35 PM Aggrastat stopped at this time tsoummers 02:38 PM Procedure completed at 14:38 11/10/2017 tsoummers 02:38 PM Did you address ANGEL flow and Dominance? Yes tsoummers 02:40 PM Sign out completed: Radiation Dose 1347.17 mGy, 86.042 Gy/cm2 Fluoro Time: 7.1 Isovue 370 - 200ml contrast 153 ml given by Rajan Jennings MD. Complications: NoneCardiac Rehab Consult needed: YesConfirmed administered medications: Yes tsoummers 02:40 PM Isovue 370 - 200ml,1 Bottle(s) used. tsoummers 02:40 PM Sheath left in place to be pulled on floor/holding area tsoummers 02:40 PM At 14:40 the ACT was 237 seconds. tsoummers 02:40 PM Estimated Blood Loss: less than 20cc tsoummers 02:40 PM Post ECG NSR tsoummers 02:41 PM Post Blood Pressure 130/72 tsoummers 02:41 PM Information taught Cardiac Cath and PCI tsoummers 02:41 PM Education needs Plan of Care, Procedure, and Responsibilities of Patient in Care tsoummers 02:41 PM Learning barriers :None tsoummers 02:41 PM Education Methods Verbal tsoummers 02:41 PM Education evaluation Able to repeat information tsoummers 02:41 PM Site status No bleeding/hematoma - Rt Groin as reported by Sites, Tiffanie RT (R) at 14:41 [facility] 02:41 PM Opsite applied 02:41 PM Plavix, Effient or Brilinta given No. 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 02:43 PM Complications: None :43 PM Fluoro Time: 7.1 02:43 PM Isovue 370 - 200ml contrast 153 ml given by Michaela. 02:43 PM Radiation Dose 1347.17 mGy 02:43 PM Report given to Luz Maria CLAYTON Pt taken to Holding room Room #4. 14:43 02:44 PM Patient out of room: 14:44 02:44 PM Lesion found in Proximal LAD. Pre Stenosis: 60 Pre ANGEL Flow: 02:44 PM Lesion found in Mid LAD. Pre Stenosis: 60 Pre ANGEL Flow: 02:44 PM Proximal Left Anterior Descending Coronary Artery with 60% stenosis. If graft is supplying this territory, 0 % stenosis. 02:44 PM Mid/Distal Left Anterior Descending Coronary Artery and diagonal branches with 60% stenosis. If graft is supplying this area, 0 % stenosis 02:51 PM patient arrive to HR4 mprater 04:42 PM Patient voided 100cc per urinal mprater 04:50 PM Arterial sheath pulled using manual compression and V+ Pad for 15 minutes by Magi Lo RT mprater Complications Complication None Hemodynamics Pressures Site Systolic/A Wave Diastolic/V Wave Mean AO 111 48 74 AO 116 49 77 AO 127 53 85 AO 99 1 30 Post Procedure Information Blood Pressure: 130/72 mmHg Rhythm: NSR Post procedural instructions were given Site Checks Time Location Status Staff Sheath In? Note 02:41 PM Rt Groin No bleeding/hematoma Sites, Tiffanie RT (R) 02:51 PM Lt Groin No bleeding/ No Hematoma Luz Maria Noyola RN Yes 03:20 PM Lt Groin No bleeding/ No Hematoma Yasmin Harris RN Yes 03:37 PM Lt Groin No bleeding/ No Hematoma Kizzy Graham RN Yes 03:45 PM Lt Groin Bruising Luz Maria Noyola RN Yes 04:00 PM Lt Groin Bruising Luz Maria Noyola RN Yes 04:15 PM Lt Groin Bruising Luz Maria Noyola RN Yes 04:35 PM Lt Groin Bruising Luz Maria Noyola RN Yes 04:47 PM Lt Groin Bleeding Luz Maria Noyola RN Yes Pulses Time Site Pre-Procedure Post-Procedure Note 11/10/2017 2:51:00 PM Rt DP and pt 1+ 11/10/2017 2:51:00 PM Lt DP and pt 2+ 11/10/2017 2:51:00 PM Bilateral radial 2+ 11/10/2017 3:20:00 PM Bilateral DP & PT 2+ 11/10/2017 4:47:00 PM Bilateral DP & PT 2+ Updated by Magi Lo RT (R) on 11/10/2017 5:06:24 PM electronically signed on 11/10/2017 5:07:15 PM with status of Final
--- NOTE | 2017-11-10 17:21 | Invasive Diagnostic Lab Proc ---
Name: Bear Mcclain Date of Study: 11/10/2017 Date: 1940 Ht: 70.9in Medical Record#: [id number] Age: 76 Wt: 167.55lb Gender: Male BSA: 1.95 Order #: [id number] BMI: 23.46 Physicians Procedure Physician: Rajan Jennings MD Referring MD: Referring MD: Staff Name Position Time In DaishacameronGisel penn RN Monitor 01:45 PM Sae Elise RN Gospel Worker 01:45 PM Tiffanie Sanford RT (R) Scrub 01:45 PM Magi Lo RT 01:45 PM Indications Indication Non-Stemi coronary artery disease Procedures Performed Procedure PRQ CARD SAL STENT W/ANGIO 1 VSL Pre-Procedure Checklist Informed consent is complete signed and on chart. H&P is on chart. ID band is on and ID verified with patient. Patient NPO for procedure The procedure was described for the patient and questions were answered. Blood Pressure: 112/73 ECG is on chart. Plan of Care Patient will tolerate the procedure without complications. Adequate level of comfort will be maintained. Hemodynamics will remain stable Patient will recover from procedure without complications. Respiratory function will be maintained. Cardiac rhythm will remain stable. Patient temperature will be maintained. Patient and/or family have verbalized understanding of the procedure. Patient Education Chief Complaint/Reason for Test: Cardiac Cath Developmental Category: Geriatric (65+ years) Developmentally Appropriate for Age: Yes Learning Barriers: None Education Needs: Procedure Education Method: Verbal Information Taught: Cardiac Cath Educational Evaluation: Able to repeat information Intravenous Access Time IV Size Location DC'd Fluid/Drip Rate Units RN 01:39 PM 20g 1 05/20" Patent On Arrival Rt Arm Allergies ascorbic acid Vital Signs Time BP (mmHg) HR (bpm) O2 Sat. RR (bpm) LOC 01:40 PM 112 / 73 113 94 % 17 5 = Fully awake and oriented or at pre-proc level 02:09 PM / % 4 = Oriented but drowsy 02:09 PM / % 4 = Oriented but drowsy 01:53 PM 124 / 78 86 97 % 01:58 PM 127 / 69 81 96 % 02:03 PM 122 / 67 74 96 % 02:08 PM 117 / 67 74 97 % 02:13 PM 122 / 70 75 96 % 02:18 PM 120 / 67 84 98 % 02:23 PM 125 / 74 81 98 % 02:28 PM 118 / 73 84 99 % 02:33 PM 131 / 75 83 98 % 02:51 PM 130 / 70 77 96 % 16 5 = Fully awake and oriented or at pre-proc level 03:20 PM 118 / 70 79 95 % 16 5 = Fully awake and oriented or at pre-proc level 03:37 PM 127 / 73 82 96 % 16 5 = Fully awake and oriented or at pre-proc level 03:45 PM 122 / 75 80 97 % 16 5 = Fully awake and oriented or at pre-proc level 04:00 PM 119 / 71 71 95 % 18 5 = Fully awake and oriented or at pre-proc level 04:15 PM 129 / 66 72 95 % 16 5 = Fully awake and oriented or at pre-proc level 04:35 PM 119 / 65 75 99 % 16 5 = Fully awake and oriented or at pre-proc level 04:47 PM 125 / 71 75 99 % 16 5 = Fully awake and oriented or at pre-proc level 05:05 PM 130 / 69 76 99 % 16 5 = Fully awake and oriented or at pre-proc level Procedural Medications Time Medication Dose Units Method Given By 01:55 PM Oxygen 2 L/min nasal cannula Sae Elise RN 01:55 PM Versed 1 mg Intravenous Sae Elise RN 01:55 PM Fentanyl 50 mcg Intravenous Sae Elise RN 02:11 PM Lidocaine 2% 10 ml Subcutaneous Rajan Jennings MD 02:15 PM Heparin 3000 units Intraarterial Rock Jennings MD 02:16 PM Aggrastat Bolus: 37.5 ml Intravenous Sae Elise RN 02:16 PM Aggrastat 12.5mg/250ml 13.5 ml/hr Intravenous Sae Elise RN ASA Classification: CLASS II- Mild systemic disease (i.e. well-controlled diabetes, hypertension, asthma, cigarette smoking) Coy Score Preprocedure Postprocedure Activity 2- Moves 4 extremities sustained head lift Activity 2- Moves 4 extremities sustained head lift Circulation 2- SBP +/= 20 points of pre-anesthetic level Circulation 2- SBP +/= 20 points of pre-anesthetic level Consciousness 2- Awake and alert oriented x 3 Consciousness 2- Awake and alert oriented x 3 O2 Saturation 2- Able to maintain O2 satruation of 92% on room air O2 Saturation 2- Able to maintain O2 satruation of 92% on room air Respiratory 2- Able to deep breathe and cough well Respiratory 2- Able to deep breathe and cough well Total Score 10 Total Score 10 Contrast Agent: Isovue Diagnostic Contrast: 153 ml Total Contrast: 153 ml Fluoro Dose: 86 mGy Activated Clotting Time Time Seconds to Clot 02:31 PM 399 02:40 PM 237 03:50 PM 191 04:45 PM 166 Procedure Log Time Note Enter By 01:37 PM 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 tsoummers 01:40 PM Procedure start 13:40 tsoummers 01:45 PM Gisel Humphries RN Position: Monitor Time in: 13:45 tsoummers 01:45 PM Sae Elise RN Position: Gospel Worker Time in: 13:45 oummers 01:45 PM Tiffanie Sanford RT (R) Position: Scrub Time in: 13:45 tsoummers 01:45 PM Magi Lo Position: Time in: 13:45 tsoummers 01:45 PM Case Delayed No oummers 01:46 PM Hair removed from procedure site in procedure lab using clippers. Bilateral groin prepped with Chloraprep by Magi Lo, then patient was draped. Skin intact. tsoummers 01:46 PM CathStat 01:50 PM Vitals capture started with the following parameters, Patient=Adult, Interval=5 min, Initial Lgbmfwfd=658 mmHg, Deflation Rate=3 mmHg, Cuff placed on Right Arm 01:52 PM Vitals capture started with the following parameters, Patient=Adult, Interval=5 min, Initial Ibqyfmqy=061 mmHg, Deflation Rate=3 mmHg, Cuff placed on Right Arm 01:53 PM HR=86 bpm, CBMJ=127/78 mmhg, SpO2=97.0 % 01:54 PM Recorded ECG: HR=82 Condition=Condition 1 01:54 PM Recorded ECG: HR=87 Condition=Condition 1 01:55 PM Time: 13:55 Oxygen on at 2 L/min per nasal cannula by Sae Elise RN 01:55 PM Time: 13:55 Versed 1 mg Intravenous Given by Sae Elise RN 01:55 PM Time: 13:55 Fentanyl 50 mcg Intravenous Given by Sae Elise RN 01:58 PM HR=81 bpm, NOJG=700/69 mmhg, SpO2=96.0 % 02:00 PM Pressure channel 1 zeroed. 02:03 PM HR=74 bpm, IVYJ=228/67 mmhg, SpO2=96.0 % 02:08 PM HR=74 bpm, PEFI=767/67 mmhg, SpO2=97.0 % 02:09 PM Time: 14:09 Patient comfortable and pain free: Yes [email or web address] 02:09 PM Time: 14:09LOC: 4 = Oriented but drowsy tsoummfili 02:09 PM Time out performed according to hospital policy fili 02:11 PM Time: 14:11 10 ml Lidocaine 2% to left groin Subcutaneous Given by Rajan Jennings MD brina 02:12 PM ASA Class CLASS II- Mild systemic disease (i.e. well-controlled diabetes, hypertension, asthma, cigarette smoking) mm 02:13 PM HR=75 bpm, MIZJ=024/70 mmhg, SpO2=96.0 %, Comment=nsr 02:13 PM Access obtained by percutaneous puncture. 6Fr 10cm Terumo [place] sheath placed in left Femoral artery. [id number] oummers 02:14 PM 0.035 145cm Navilyst 3mmJ wire [id number] mm 02:14 PM Inflation device was opened. tsmm 02:14 PM 6Fr XB LAD 3.5 [place] Bright-Tip guide catheter was used to cannulate the PCI vessel successfully. reused? No oumm 02:14 PM wire removed brina 02:15 PM Time: 14:15 Heparin 3000 units Intraarterial Given by Rock Jennings MD 02:16 PM Time: 14:16 Aggrastat Bolus: 37.5 ml Intravenous Given by Sae Elise RN Davison pump magali 02:16 PM Time: 14:16 Aggrastat 12.5mg/250ml 13.5 ml/hr Intravenous Given by Sae Elise RN Davison pump 02:17 PM LCA angiography performed in multiple views. mm 02:17 PM Recorded Pressure: Ao, HR=77, Condition=Condition 1 (Aorta) Ao 111/48/74 02:18 PM Coronary Dominance: right per previous cath tsoumm 02:18 PM HR=84 bpm, OXCS=209/67 mmhg, SpO2=98.0 % 02:19 PM .014 [employer] [place] 180cm guide wire across target lesion- successful. reused? No tsoummers 02:19 PM Lesion found in Proximal Circumflex. Pre Stenosis: 80 Pre ANGEL Flow: 3: Complete and Brisk Flow/Perfusion tsoumm 02:20 PM Circumflex, Obtuse Marginal, Left Posterior Descending, and Left Posterolateral Coronary Arteries with 80 % stenosis. If graft is supplying this area, 0 % stenosis tsoumm 02:20 PM 2.0 mm x 12 mm Emerge [employer] balloon across target lesion- successful. reused? No tsoumm 02:21 PM Balloon inflated @ 6 tamir for 8 seconds tsoumm 02:21 PM Balloon inflated @ 6 tamir for 12 seconds tsoumm 02:22 PM Balloon inflated @ 6 tamir for 12 seconds tsoumm 02:22 PM Balloon catheter removed intact. tsoumm 02:23 PM HR=81 bpm, HHLQ=326/74 mmhg, SpO2=98.0 %, Comment=nsr 02:23 PM Recorded Pressure: Ao, HR=79, Condition=Condition 1 (Aorta) Ao 116/49/77 02:24 PM Time: 14:09LOC: 4 = Oriented but drowsy tsoumm 02:24 PM Time: 14:09 Patient comfortable and pain free: Yes tsoumm 02:25 PM 2.5mm x 16mm Synergy drug-eluting stent across target lesion- successful Lot #[id number] tsoumm 02:28 PM HR=84 bpm, XBGC=144/73 mmhg, SpO2=99.0 %, Comment=nsr 02:28 PM Stent deployed @ 9 tamir for 17 seconds tsoumm 02:29 PM Stent balloon reinflated @ 14 tamir for 15 seconds tsoumm 02:30 PM Recorded Pressure: Ao, HR=88, Condition=Condition 1 (Aorta) Ao 127/53/85 02:31 PM Stent delivery system removed intact. tsoummers 02:31 PM At 14:31 the ACT was 399 seconds. tsoummers 02:31 PM 3.0mm x 12mm Synergy drug-eluting stent across target lesion- successful Lot #[id number] tsoumm 02:33 PM Stent deployed @ 11 tamir for 8 seconds tsoumm 02:33 PM HR=83 bpm, YDGK=859/75 mmhg, SpO2=98.0 % 02:33 PM Stent balloon reinflated @ 15 tamir for 8 seconds tsoumm 02:34 PM Guide wire removed intact. tsoumm 02:34 PM Stent delivery system removed intact. tsoummers 02:34 PM Recorded Pressure: Ao, HR=82, Condition=Condition 1 (Aorta) Ao 02:35 PM Guide catheter removed intact. tsoummers 02:35 PM Aggrastat stopped at this time tsoummers 02:38 PM Procedure completed at 14:38 11/10/2017 tsoummers 02:38 PM Did you address ANGEL flow and Dominance? Yes tsoummers 02:40 PM Sign out completed: Radiation Dose 1347.17 mGy, 86.042 Gy/cm2 Fluoro Time: 7.1 Isovue 370 - 200ml contrast 153 ml given by Rajan Jennings MD. Complications: NoneCardiac Rehab Consult needed: YesConfirmed administered medications: Yes tsoummers 02:40 PM Isovue 370 - 200ml,1 Bottle(s) used. tsoummers 02:40 PM Sheath left in place to be pulled on floor/holding area tsoummers 02:40 PM At 14:40 the ACT was 237 seconds. tsoummers 02:40 PM Estimated Blood Loss: less than 20cc tsoummers 02:40 PM Post ECG NSR tsoummers 02:41 PM Post Blood Pressure 130/72 tsoummers 02:41 PM Information taught Cardiac Cath and PCI tsoummers 02:41 PM Education needs Plan of Care, Procedure, and Responsibilities of Patient in Care tsoummers 02:41 PM Learning barriers :None tsoummers 02:41 PM Education Methods Verbal tsoummers 02:41 PM Education evaluation Able to repeat information tsoummers 02:41 PM Site status No bleeding/hematoma - Rt Groin as reported by Sites, Tiffanie RT (R) at 14:41 tsoummers 02:41 PM Opsite applied mm 02:41 PM Plavix, Effient or Brilinta given No. 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 mm 02:43 PM Complications: None 02:43 PM Fluoro Time: 7.1 02:43 PM Isovue 370 - 200ml contrast 153 ml given by Michaela. 02:43 PM Radiation Dose 1347.17 mGy oumm 02:43 PM Report given to Luz Maria CLAYTON Pt taken to Holding room Room #4. 14:43 tsoummers 02:44 PM Patient out of room: 14:44 tsoummers 02:44 PM Lesion found in Proximal LAD. Pre Stenosis: 60 Pre ANGEL Flow: mm 02:44 PM Lesion found in Mid LAD. Pre Stenosis: 60 Pre ANGEL Flow: mm 02:44 PM Proximal Left Anterior Descending Coronary Artery with 60% stenosis. If graft is supplying this territory, 0 % stenosis. tsoumm 02:44 PM Mid/Distal Left Anterior Descending Coronary Artery and diagonal branches with 60% stenosis. If graft is supplying this area, 0 % stenosis tsoumm 02:51 PM patient arrive to HR4 mprater 04:42 PM Patient voided 100cc per urinal mprater 04:50 PM Arterial sheath pulled using manual compression and V+ Pad for 15 minutes by Magi Lo RT mprater 05:12 PM Report given to Orlando CLAYTON Pt taken to E Room #17. 17:12 tsites 05:12 PM Patient out of room: 17:12 tsites Complications Complication None Hemodynamics Pressures Site Systolic/A Wave Diastolic/V Wave Mean AO 111 48 74 AO 116 49 77 AO 127 53 85 AO 99 1 30 Post Procedure Information Blood Pressure: 130/72 mmHg Rhythm: NSR Post procedural instructions were given Closure Device Time Device Success/Fail 11/10/2017 5:12:00 PM Manual Compression Successful Site Checks Time Location Status Staff Sheath In? Note 02:41 PM Rt Groin No bleeding/hematoma Sites, Tiffanie RT (R) 02:51 PM Lt Groin No bleeding/ No Hematoma Luz Maria Noyola RN Yes 03:20 PM Lt Groin No bleeding/ No Hematoma Yasmin Harris RN Yes 03:37 PM Lt Groin No bleeding/ No Hematoma Kizzy Graham RN Yes 03:45 PM Lt Groin Bruising Luz Maria Noyola RN Yes 04:00 PM Lt Groin Bruising Luz Maria Noyola RN Yes 04:15 PM Lt Groin Bruising Luz Maria Noyola RN Yes 04:35 PM Lt Groin Bruising Luz Maria Noyola RN Yes 04:47 PM Lt Groin Bleeding Luz Maria Noyola RN Yes Pulses Time Site Pre-Procedure Post-Procedure Note 11/10/2017 2:51:00 PM Rt DP and pt 1+ 11/10/2017 2:51:00 PM Lt DP and pt 2+ 11/10/2017 2:51:00 PM Bilateral radial 2+ 11/10/2017 3:20:00 PM Bilateral DP & PT 2+ 11/10/2017 4:47:00 PM Bilateral DP & PT 2+ Updated by Tiffanie Sanford RT (R) on 11/10/2017 5:14:24 PM Tiffanie Sanford RT electronically signed on 11/10/2017 5:15:03 PM with status of Final
[2017-11-10] MEDS ORDERED: Insulin LISPRO 300 UNITS/3 ML VIAL SQ SCH (21:00)
[2017-11-11 04:28] LABS: Eosinophils % 3.4 %; Immature Granulocytes % 0.4 % (0-4); Mean Platelet Volume 10.8 fL (9.4-12.4)
[2017-11-11 04:30] LABS: Basophils % 0.4 %; Eosinophils # 0.2 K/mcL (0.0-0.6); Hematocrit 36.7 % (37.5-50.1); Hemoglobin 12.7 g/dL (12.9-16.9); Immature Platelets 4.8 % (1.1-6.1); Lymphocytes # 1.4 K/mcL (0.6-4.6); Mean Corpuscular HGB Conc 34.6 g/dL (31.6-35.5); Mean Corpuscular Hemoglobin 33.6 pg (28.0-33.3); Mean Corpuscular Volume 97.1 fL (83.0-100.0); Monocytes # 0.8 K/mcL (0.0-1.3); Monocytes % 11.9 %; Neutrophils # 4.5 K/mcL (1.6-8.9); Red Blood Count 3.78 M/mcL (4.19-5.50); Red Cell Distribution Width 14.6 % (11.5-14.5); Segmented Neutrophils % 63.9 %
[2017-11-11 04:32] LABS: Platelet Count 91 K/mcL (140-400)
[2017-11-11 04:51] LABS: Alanine Aminotransferase 11 Units/L (7-52); Albumin 3.7 g/dL (3.5-5.7); Albumin/Globulin Ratio 1.9 (1.1-2.2); Alkaline Phosphatase 56 Units/L (34-104); Aspartate Amino Transferase 16 Units/L (13-39); BUN/Creatinine Ratio 27 (6-26); Bilirubin,Total 0.7 mg/dL (0.3-1.0); Blood Urea Nitrogen 18 mg/dL (8-23); Calcium 8.7 mg/dL (8.6-10.3); Carbon Dioxide 25 mEq/L (23-29); Chloride 106 mEq/L (98-107); Globulin 1.9 g/dL (2.4-3.5); Glucose 141 mg/dL (70-105); Osmolality,Calculated 286 (280-300); Potassium 3.8 mEq/L (3.5-5.1); Sodium 136 mEq/L (136-145); Total Protein 5.6 g/dL (6.4-8.9); eGFR For African Americans > 60 (> 60); eGFR For Non-African Americans > 60 (> 60)
[2017-11-11] MEDS ORDERED: Insulin LISPRO 300 UNITS/3 ML VIAL SQ SCH (07:30)
[2017-11-11] MEDS: Ammonium Lactate 30 APPL/225 GM BOTTLE TP SCH (09:56)
[2017-11-11] MEDS: *HR* Ticagrelor 90 MG TABLET PO SCH (09:56)
[2017-11-11] MEDS: Loratadine 10 MG TABLET PO SCH (09:56)
[2017-11-11] MEDS: Isosorbide MONOnitrate (24 HR) 60 MG TAB.ER.24H PO SCH (09:56)
[2017-11-11] MEDS: Eucerin Cream 57 GM TUBE TP SCH (09:56)
[2017-11-11] MEDS: Aspirin 81 MG TAB.CHEW PO SCH (09:56)
--- NOTE | 2017-11-11 11:09 | Cardiology Progress Note ---
Date of Encounter: 11/11/17 Time of Encounter: 10:00 Assessment and Plan (1) NSTEMI (non-ST elevated myocardial infarction) Current Visit: Yes Status: Acute - Elevated troponin of 1.07/1.11/0.99 - S/p 2 SAL to mid RCA and proximal circumflex (11/08 and 11/10) - Atypical chest pain on HPI (substernal, non exertional, not relieved by NTG) - Echo on 11/08/17 shows EF 60% with indeterminate diastolic dysfunction - EKG shows NSR with possible RBBB consistent with EKG in 2012, no ST changes to suggest acute infarct Plan - Patient pain has resolved - Continue ASA and brilinta for 1 year. Given discount card for brilinta, 1 month - Activity limited to no more than 10 lbs for one week. May wash incision but no baths, pools, submerging. - Follow up with cardiology as outpatient - Discussed with Dr. Waterman. Cardiology will sign off at this time. Thank you for allowing us to participate in his care. Reconsult if necessary. (2) CHF (congestive heart failure) Current Visit: Yes Status: Chronic - Appears euvolemic on exam, not in acute exacerbation - Echo shows EF 60%, indeterminate diastolic dysfunction - SOB resolved. - Continue current medications Qualifiers: Heart failure type: diastolic Heart failure chronicity: chronic Qualified Code(s): I50.32 - Chronic diastolic (congestive) heart failure (3) COPD (chronic obstructive pulmonary disease) Current Visit: Yes Status: Chronic Not in acute exacerbation Further management per primary team Qualifiers: COPD type: unspecified COPD Qualified Code(s): J44.9 - Chronic obstructive pulmonary disease, unspecified (4) CAD (coronary artery disease) Current Visit: Yes Status: Chronic As above for NSTEMI Qualifiers: Coronary Disease-Associated Artery/Lesion type: [place] artery [place] vs. transplanted heart: [place] heart Associated angina: angina presence unspecified Qualified Code(s): I25.10 - Atherosclerotic heart disease of [place] coronary artery without angina pectoris (5) Diabetes Current Visit: Yes Status: Chronic Well controlled during this admission, BS 141 Further management per primary team Qualifiers: Diabetes mellitus type: type 2 Diabetes mellitus snf insulin use: without snf use Diabetes mellitus complication status: with unspecified complications Qualified Code(s): E11.8 - Type 2 diabetes mellitus with unspecified complications (6) HTN (hypertension) Current Visit: Yes Status: Chronic - Well controlled. BP 110/51 Continue current meds Qualifiers: Hypertension type: essential hypertension Qualified Code(s): I10 - Essential (primary) hypertension (7) HLD (hyperlipidemia) Current Visit: Yes Status: Chronic Continue statin Qualifiers: Hyperlipidemia type: pure hypercholesterolemia Qualified Code(s): E78.00 - Pure hypercholesterolemia, unspecified; E78.0 - Pure hypercholesterolemia Discussion w patient/family: The assessment and plan as outlined above was discussed with the patient and/or family members who expressed understanding and agreement. All questions were answered. Thank you for involving us in the care of your patient. Please call with any questions. Subjective Principal diagnosis: NSTEMI Interval history: Patient seen and examined at bedside this morning. He states that he tolerated his LHC well yesterday and has had no further complaints of chest pain. He states that he feels back to baseline and is ready to return home. He had no overnight events. Denies bleeding from sheath insertion site. Denies any SOB, nausea, vomiting, weakness, diaphoresis. We discussed with patient and family the importance of follow up as outpatient with cardiology after discharge and answered his questions about physical activity limitations for the next week. Objective General: Conversant, No Apparent Distress HEENT: Atraumatic, Normocephaly, Mucus Membranes Moist Neck: No JVD, Normal carotid pulses Cardiac: Reg Rate and Rhythm, Normal S1 and S2, No Murmur Lungs: Normal Breath Sounds, No Wheeze, Rales, Rhonchi Neuro: Alert and responsive, No focal deficits noted Skin: No rashes noted on visualized skin Musculoskeletal: No Chest Wall Tenderness Extremities: No Clubbing, No Cyanosis, No Edema, Normal Pulses Results 11/11/17 03:47 11/11/17 03:47 Lab Results 11/11/17 11/11/17 03:47 03:47 WBC 7.0 Hgb 12.7 L Hct 36.7 L Plt Count 91 L Sodium 136 Potassium 3.8 Chloride 106 Carbon Dioxide 25 BUN 18 Creatinine 0.67 L Glucose 141 H Calcium 8.7 Total Bilirubin 0.7 AST 16 ALT 11 Alkaline Phosphatase 56 - VTE Documentation of Mechanical Device: Graduated compression elastic hosiery Consult Discharge Plan - Plan Instructions: Ticagrelor (By mouth), Myocardial Infarction (DC), Chest Pain (DC ) Referrals: [facility] [Provider Group] AYAN,PCP [Primary Care Provider] - 11/18/17 10:15 am Prescriptions: Atorvastatin [Lipitor] 40 mg PO HS #30 tablet Lisinopril 2.5 mg PO DAILY #30 tablet Ticagrelor [Brilinta] 90 mg PO BID #60 tablet
[2017-11-11 12:06] VITALS: BP 102/62
--- NOTE | 2017-11-11 14:33 | Discharge Summary ---
<Gilson Briggs - Last Filed: 11/11/17 14:57> Orders not resulted at time of discharge: Pending orders 11/08/17 14:54 ECG 12 lead ECG [ECG] Routine 11/08/17 15:15 EKG [ECG 12 lead ECG] [ECG] Stat 11/09/17 07:00 ECG 12 lead ECG [ECG] Routine 11/10/17 15:26 ECG 12 lead ECG [ECG] Routine 11/11/17 07:00 ECG 12 lead ECG [ECG] Routine 11/12/17 04:00 Complete Blood Count [HEME] AM 0400 Comprehensive Metabolic Panel AM 0400 Date of Encounter: 11/11/17 Time of Encounter: 08:30 - Discharge Diagnosis (1) NSTEMI (non-ST elevated myocardial infarction) Priority: Primary Status: Acute (2) CHF (congestive heart failure) Priority: Secondary Status: Chronic Qualifiers: Heart failure type: diastolic Heart failure chronicity: chronic Qualified Code(s): I50.32 - Chronic diastolic (congestive) heart failure (3) COPD (chronic obstructive pulmonary disease) Priority: Secondary Status: Chronic Qualifiers: COPD type: unspecified COPD Qualified Code(s): J44.9 - Chronic obstructive pulmonary disease, unspecified (4) CAD (coronary artery disease) Priority: Secondary Status: Chronic Qualifiers: Coronary Disease-Associated Artery/Lesion type: [place] artery [place] vs. transplanted heart: [place] heart Associated angina: angina presence unspecified Qualified Code(s): I25.10 - Atherosclerotic heart disease of [place] coronary artery without angina pectoris (5) Diabetes Priority: Secondary Status: Chronic Qualifiers: Diabetes mellitus type: type 2 Diabetes mellitus oysterman insulin use: without oysterman use Diabetes mellitus complication status: with unspecified complications Qualified Code(s): E11.8 - Type 2 diabetes mellitus with unspecified complications (6) GERD (gastroesophageal reflux disease) Priority: Secondary Status: Chronic Qualifiers: Esophagitis presence: esophagitis presence not specified Qualified Code(s) : K21.9 - Gastro-esophageal reflux disease without esophagitis (7) HTN (hypertension) Priority: Secondary Status: Chronic Qualifiers: Hypertension type: essential hypertension Qualified Code(s): I10 - Essential (primary) hypertension (8) HLD (hyperlipidemia) Priority: Secondary Status: Chronic Qualifiers: Hyperlipidemia type: pure hypercholesterolemia Qualified Code(s): E78.00 - Pure hypercholesterolemia, unspecified; E78.0 - Pure hypercholesterolemia (9) DVT prophylaxis Priority: Secondary Status: Acute Hospital course: Mr. Mcclain is a 76 year old male with past medical history of diastolic heart failure, COPD, CAD, DM2, HTN, HLD who presented to [facility] 11/07 with 12 hour onset of chest pain and shortness of breath after cutting his grass. Patient's troponin was elevated at 1.07. His ECG showed no ST elevation, was stable on medical therapy, precautions for NTG drip if symptoms worsened with planned LHC on 11/08. LHC with SAL to mid RCA and proximal circ were performed on two separate days. Patient tolerted both procedures well, denying shortness of breath, syncope, chest discomfort, fever, or bleed. Patient is on Brillinta/ASA/ BB/statin, will also start him on 2.5mg Lisinopril. He will follow-up with Cardiology outpatient and discharge today, 11/11. - Time Spent with Patient Total time spent providing and/or coordinating discharge services: Greater than 30 minutes - Discharge Medications Prescriptions: Aspirin 81 mg PO DAILY #30 tab.chew Atorvastatin [Lipitor] 40 mg PO HS #30 tablet Lisinopril 2.5 mg PO DAILY #30 tablet Ticagrelor [Brilinta] 90 mg PO BID #60 tablet Home Medications: Ammonium Lactate [Amlactin] 1 appl TP BID 11/07/17 [History] Cetirizine HCl [All Day Allergy] 10 mg PO DAILY 11/07/17 [History] Lanolin Alcohol/Mo/W.pet/Sadorus [Eucerin Creme] 1 appl TP DAILY 11/07/17 [History ] Metformin HCl [Glucophage] 1,000 mg PO BID 11/07/17 [History] Metoprolol [Lopressor] 25 mg PO BID 11/07/17 [History] Omeprazole [PriLOSEC] 20 mg PO DAILY 11/07/17 [History] Terazosin [Hytrin] 3 mg PO HS 11/07/17 [History] Triamcinolone Acet 0.1% CRM [Kenalog] 1 appl TP BID PRN 11/07/17 [History] Aspirin 81 mg PO DAILY #30 tab.chew 11/11/17 [Rx] Atorvastatin [Lipitor] 40 mg PO HS #30 tablet 11/11/17 [Rx] Lisinopril 2.5 mg PO DAILY #30 tablet 11/11/17 [Rx] Ticagrelor [Brilinta] 90 mg PO BID #60 tablet 11/11/17 [Rx] Allergies/Adverse Reactions: 3 Allergy/AdvReac Type Severity Reaction Status Date / Time ascorbic acid Allergy Rash Verified 11/07/17 11:47 Date of admission: 11/07/17 13:07 [facility] care physician: [facility] Consults: 11/07/17 15:01 Consult to Mountain Bike Guide [CONS] Routine Reason for SW Consult: Please assess patient for possible home needs for post -discharge planning. 11/08/17 14:54 Consult to Cardiac Rehabilitation-Phase1 [CONS] Routine Comment: Reason for Consult: AMI Call Completed: Yes Consult to Nurse Navigator [CONS] Routine Comment: 11/10/17 15:26 Consult to Cardiac Rehabilitation-Phase1 [CONS] Routine Comment: Reason for Consult: AMI Call Completed: Yes Consult to Nurse Navigator [CONS] Routine Comment: Discharging clinician: Gilson Briggs Anticipated date of discharge: 11/11/17 - Constitutional Vitals: Temp Pulse Resp BP Pulse Ox 97.1 F L 89 16 102/62 95 11/11/17 12:01 11/11/17 12:01 11/11/17 12:01 11/11/17 12:01 11/11/17 12:01 General appearance: Present: cooperative, A&O X 3, pleasant, no acute distress, answers questions appropriately - Head Head exam: Present: atraumatic, normal inspection - Eye Eye exam: Present: EOMI, normal appearance - Neck Neck exam general surgery: Present: full ROM. Absent: lymphadenopathy - Respiratory Respiratory exam: Present: CTAB. Absent: stridor, wheezes, tachypnea - Cardiovascular Cardiovascular exam: Present: RRR, +S1, +S2. Absent: systolic murmur - GI/Abdominal GI/Abdominal exam: Present: no peritoneal signs. Absent: distended, firm, guarding - Extremities Exam Extremities exam: Present: warm. Absent: calf tenderness - Neurological Exam Neurological exam: Absent: facial droop, speech deficit - Psychiatric Psychiatric exam: Present: normal affect, normal mood - Skin Skin exam: Present: normal color. Absent: cyanosis, diaphoretic - Patient Status Disposition: Home, Self-Care Condition: Good Functional capacity at discharge: independent ambulation Overall status at discharge: patient is progressing back to baseline - Discharge Instructions Instructions: Ticagrelor (By mouth), Myocardial Infarction (DC), Chest Pain (DC ) Follow Up With: [facility] [Primary Care Provider] - 11/18/17 10:15 am [facility] [Provider Group] - Diet and Activity Activity: increase activity as tolerated Diet: low salt diet - VTE Documentation of Mechanical Device: Graduated compression elastic hosiery <Salvador Gregory - Last Filed: 11/11/17 15:36> Orders not resulted at time of discharge: Pending orders 11/08/17 14:54 ECG 12 lead ECG [ECG] Routine 11/08/17 15:15 EKG [ECG 12 lead ECG] [ECG] Stat 11/09/17 07:00 ECG 12 lead ECG [ECG] Routine 11/10/17 15:26 ECG 12 lead ECG [ECG] Routine 11/11/17 07:00 ECG 12 lead ECG [ECG] Routine 11/12/17 04:00 Complete Blood Count [HEME] AM 0400 Comprehensive Metabolic Panel AM 0400 Date of Encounter: 11/11/17 - Discharge Diagnosis (1) NSTEMI (non-ST elevated myocardial infarction) Status: Acute (2) CHF (congestive heart failure) Status: Chronic Qualifiers: Heart failure type: diastolic Heart failure chronicity: chronic Qualified Code(s): I50.32 - Chronic diastolic (congestive) heart failure (3) COPD (chronic obstructive pulmonary disease) Status: Chronic Qualifiers: COPD type: unspecified COPD Qualified Code(s): J44.9 - Chronic obstructive pulmonary disease, unspecified (4) CAD (coronary artery disease) Status: Chronic Qualifiers: Coronary Disease-Associated Artery/Lesion type: [place] artery [place] vs. transplanted heart: [place] heart Associated angina: angina presence unspecified Qualified Code(s): I25.10 - Atherosclerotic heart disease of [place] coronary artery without angina pectoris (5) Diabetes Status: Chronic Qualifiers: Diabetes mellitus type: type 2 Diabetes mellitus oysterman insulin use: without assisted use Diabetes mellitus complication status: with unspecified complications Qualified Code(s): E11.8 - Type 2 diabetes mellitus with unspecified complications (6) HTN (hypertension) Status: Chronic Qualifiers: Hypertension type: essential hypertension Qualified Code(s): I10 - Essential (primary) hypertension (7) HLD (hyperlipidemia) Status: Chronic Qualifiers: Hyperlipidemia type: pure hypercholesterolemia Qualified Code(s): E78.00 - Pure hypercholesterolemia, unspecified; E78.0 - Pure hypercholesterolemia Hospital course: Mr. Mcclain is a 76 year old male - Time Spent with Patient Total time spent providing and/or coordinating discharge services: Date of admission: 11/07/17 13:07 [facility] physician: [facility] Consults: 11/07/17 15:01 Consult to Mountain Bike Guide [CONS] Routine Reason for SW Consult: Please assess patient for possible home needs for post -discharge planning. 11/08/17 14:54 Consult to Cardiac Rehabilitation-Phase1 [CONS] Routine Comment: Reason for Consult: AMI Call Completed: Yes Consult to Nurse Navigator [CONS] Routine Comment: 11/10/17 15:26 Consult to Cardiac Rehabilitation-Phase1 [CONS] Routine Comment: Reason for Consult: AMI Call Completed: Yes Consult to Nurse Navigator [CONS] Routine Comment: - Constitutional Vitals: Temp Pulse Resp BP Pulse Ox 97.1 F L 89 16 102/62 95 11/11/17 12:01 11/11/17 12:01 11/11/17 12:01 11/11/17 12:01 11/11/17 12:01 - Attending Attestation I performed an independent interview and examine this patient. I agree with the findings, assessment, and plan of Dr. Briggs, internal medicine resident. Patient is stable for discharge. Coronary artery disease management as per cardiology recommendations. Given recent non-STEMI, we also added a low-dose STEFFANY inhibitor. Patient is pain-free and stable for discharge.
--- NOTE | 2017-11-11 16:47 | Electrocardiograph Report ---
[place] [id number] Test Date: 2017-11-10 Pat Name: Bear Mcclain Department: 111 Room: 2NE17 Gender: M Training Developer: : 1940 Requested By: Rajan Jennings Order Number: [id number] Reading MD: Roxane Majano Measurements Intervals [place] Rate: 90 P: 55 NC: 162 QRS: -68 QRSD: 117 T: 42 QT: 375 QTc: 423 Interpretive Statements SINUS RHYTHM RIGHT BUNDLE BRANCH BLOCK LEFT ANTERIOR FASCICULAR BLOCK Electronically Signed On 11-11-2017 16:45:13 EDT by Roxane Majano
== END 2017-11-11 15:54 | disposition home or self-care (01) | DRG 247 ==
LOC: EMEROO 10:15 → 2NENU 13:07
PROVIDERS: ADMIT Nurse Practitioner Family; ATTEND Nurse Practitioner Family